=== PATIENT | female | born 1990 | race Caucasian/White ===

== ENCOUNTER 2017-02-23 03:08 | Emergency (ER) | payer MEDICAID ==
[2017-02-23 03:14] VITALS: TEMP 97.2
[2017-02-23] MEDS ORDERED: SODIUM CHLORIDE 0.9% 1,000 ML IV STA (03:58)
[2017-02-23] MEDS ORDERED: MORPHINE SULFATE 4 MG/ML SYRINGE IV STA (03:58)
[2017-02-23] MEDS ORDERED: SODIUM CHLORIDE 0.9% 500 ML IV STA (03:58)
--- NOTE | 2017-02-23 04:11 | ED ---
General Adult HPI - General Chief complaint: Chest Pain Stated complaint: BACK AND ABD PAIN Time Seen by Provider: 02/23/17 03:46 Source: patient, RN notes reviewed, old records reviewed Mode of arrival: ambulatory Limitations: no limitations - History of Present Illness Initial comments: This is a 18-year-old female here for evaluation. The patient comes in for evaluation of complaints of pain. Multiple complaints of different areas of pain. Patient states she has no history of sore symptoms. She does take control, patient states she awoke tonight with pain in her abdomen bilateral flanks and chest with no shortness of breath no nausea vomiting no diarrhea no fevers. No sick contacts or travel history. No recent hospitalizations. No prior history of similar symptoms. No modifying factors for pain. To take Aleve which had mild help but that has ended - Related Data Allergies Allergy/AdvReac Type Severity Reaction Status Date / Time No Known Allergies Allergy Verified 02/23/17 03:14 Review of Systems ROS Statement: Those systems with pertinent positive or pertinent negative responses have been documented in the HPI. ROS Other: All systems not noted in ROS Statement are negative. Past Medical History Past Medical History: No Reported History History of Any Multi-Drug Resistant Organisms: None Reported Past Surgical History: No Surgical Hx Reported Past Psychological History: No Psychological Hx Reported Smoking Status: Never smoker Past Alcohol Use History: Occasional Past Drug Use History: None Reported General Exam Limitations: no limitations General appearance: alert, in no apparent distress Head exam: Present: atraumatic, normocephalic, normal inspection Eye exam: Present: normal appearance, PERRL, EOMI. Absent: scleral icterus, conjunctival injection, periorbital swelling ENT exam: Present: normal exam, mucous membranes moist Neck exam: Present: normal inspection. Absent: tenderness, meningismus, lymphadenopathy Respiratory exam: Present: normal lung sounds bilaterally. Absent: respiratory distress, wheezes, rales, rhonchi, stridor Cardiovascular Exam: Present: normal rhythm, tachycardia, normal heart sounds. Absent: systolic murmur, diastolic murmur, rubs, gallop, clicks GI/Abdominal exam: Present: soft, normal bowel sounds. Absent: distended, tenderness, guarding, rebound, rigid Extremities exam: Present: normal inspection, full ROM, normal capillary refill. Absent: tenderness, pedal edema, joint swelling, calf tenderness Back exam: Present: normal inspection Neurological exam: Present: alert, oriented X3, CN II-XII intact Psychiatric exam: Present: normal affect, normal mood Skin exam: Present: warm, dry, intact, normal color. 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 Patient will be discharged, patient is consulted. 15 minutes regarding new onset blood pressure and concern for prediabetes. - Lab Data Result diagrams: 02/23/17 04:08 02/23/17 04:08 Lab Results 02/23/17 02/23/17 02/23/17 Range/Units 04:08 04:08 04:08 WBC 9.4 (3.8-10.6) k/uL RBC 5.24 (3.80-5.40) m/uL Hgb 14.5 (11.4-16.0) gm/dL Hct 42.8 (34.0-46.0) % MCV 81.7 (80.0-100.0) fL MCH 27.6 (25.0-35.0) pg MCHC 33.8 (31.0-37.0) g/dL RDW 13.1 (11.5-15.5) % Plt Count 228 (150-450) k/uL Neutrophils % 76 % Lymphocytes % 17 % Monocytes % 4 % Eosinophils % 1 % Basophils % 0 % Neutrophils # 7.2 (1.3-7.7) k/uL Lymphocytes # 1.6 (1.0-4.8) k/uL Monocytes # 0.4 (0-1.0) k/uL Eosinophils # 0.1 (0-0.7) k/uL Basophils # 0.0 (0-0.2) k/uL PT (9.0-12.0) sec INR (<1.1) APTT (22.0-30.0) sec D-Dimer (<0.60) mg/L FEU Sodium 142 (137-145) mmol/L Potassium 3.8 (3.5-5.1) mmol/L Chloride 103 (98-107) mmol/L Carbon Dioxide 27 (22-30) mmol/L Anion Gap 12 mmol/L BUN 13 (7-17) mg/dL Creatinine 0.72 (0.52-1.04) mg/dL Est GFR (MDRD) Af Amer >60 (>60 ml/min/1.73 sqM) Est GFR (MDRD) Non-Af >60 (>60 ml/min/1.73 sqM) Glucose 119 H (74-99) mg/dL Calcium 9.3 (8.4-10.2) mg/dL Magnesium 1.7 (1.6-2.3) mg/dL Total Bilirubin 1.0 (0.2-1.3) mg/dL AST 81 H (14-36) U/L ALT 64 H (9-52) U/L Alkaline Phosphatase 50 (38-126) U/L Total Creatine Kinase 234 H (30-135) U/L CK-MB (CK-2) 2.7 H* (0.0-2.4) ng/mL CK-MB (CK-2) Rel Index 1.2 Troponin I <0.012 (0.000-0.034) ng/mL NT-Pro-B Natriuret Pep pg/mL Total Protein 7.1 (6.3-8.2) g/dL Albumin 4.1 (3.5-5.0) g/dL Lipase 138 (23-300) U/L 02/23/17 02/23/17 Range/Units 04:08 04:08 WBC (3.8-10.6) k/uL RBC (3.80-5.40) m/uL Hgb (11.4-16.0) gm/dL Hct (34.0-46.0) % MCV (80.0-100.0) fL MCH (25.0-35.0) pg MCHC (31.0-37.0) g/dL RDW (11.5-15.5) % Plt Count (150-450) k/uL Neutrophils % % Lymphocytes % % Monocytes % % Eosinophils % % Basophils % % Neutrophils # (1.3-7.7) k/uL Lymphocytes # (1.0-4.8) k/uL Monocytes # (0-1.0) k/uL Eosinophils # (0-0.7) k/uL Basophils # (0-0.2) k/uL PT 9.9 (9.0-12.0) sec INR 1.0 (<1.1) APTT 23.2 (22.0-30.0) sec D-Dimer 0.35 (<0.60) mg/L FEU Sodium (137-145) mmol/L Potassium (3.5-5.1) mmol/L Chloride (98-107) mmol/L Carbon Dioxide (22-30) mmol/L Anion Gap mmol/L BUN (7-17) mg/dL Creatinine (0.52-1.04) mg/dL Est GFR (MDRD) Af Amer (>60 ml/min/1.73 sqM) Est GFR (MDRD) Non-Af (>60 ml/min/1.73 sqM) Glucose (74-99) mg/dL Calcium (8.4-10.2) mg/dL Magnesium (1.6-2.3) mg/dL Total Bilirubin (0.2-1.3) mg/dL AST (14-36) U/L ALT (9-52) U/L Alkaline Phosphatase (38-126) U/L Total Creatine Kinase (30-135) U/L CK-MB (CK-2) (0.0-2.4) ng/mL CK-MB (CK-2) Rel Index Troponin I (0.000-0.034) ng/mL NT-Pro-B Natriuret Pep 84 pg/mL Total Protein (6.3-8.2) g/dL Albumin (3.5-5.0) g/dL Lipase (23-300) U/L - Radiology Data Radiology results: report reviewed (Chest x-ray shows peribronchial thickening) , image reviewed Disposition Clinical Impression: Chest pain, Acute bronchitis Disposition: HOME SELF-CARE Condition: Good Instructions: Chest Pain (ED), Acute Bronchitis (ED) Referrals: None,Stated [Primary Care Provider] - 1-2 days
[2017-02-23 05:08] LABS: Basophils % (A) 0 %; CH 27.3; CHCM 33.5; Eosinophils # (A) 0.1 k/uL (0-0.7); Eosinophils % (A) 1 %; HCT 42.8 % (34.0-46.0); HDW 2.65; HGB 14.5 gm/dL (11.4-16.0); Luc # (Auto) 0.15; Luc % (Auto) 2; Lymphocytes # (A) 1.6 k/uL (1.0-4.8); Lymphocytes % (A) 17 %; MCH 27.6 pg (25.0-35.0); MCHC 33.8 g/dL (31.0-37.0); MCV 81.7 fL (80.0-100.0); Mean Platelet Volume 7.4; Monocytes # (A) 0.4 k/uL (0-1.0); Monocytes % (A) 4 %; Neutrophils # (A) 7.2 k/uL (1.3-7.7); Neutrophils % (A) 76 %; RBC 5.24 m/uL (3.80-5.40); RDW 13.1 % (11.5-15.5); WBC 9.4 k/uL (3.8-10.6)
--- NOTE | 2017-02-23 05:13 | XR ---
EXAM: XR Chest, 2 Views. CLINICAL HISTORY: Reason: Chest Pain TECHNIQUE: Frontal and lateral views of the chest. COMPARISON: No relevant prior studies available. FINDINGS: Lungs: Mild peribronchial wall thickening. No consolidation. Pleural space: No pleural effusion. No pneumothorax. Heart: Unremarkable. No cardiomegaly. Mediastinum: Unremarkable. Bones/joints: Unremarkable. IMPRESSION: 1. Mild peribronchial wall thickening. 2. No consolidation or pleural effusion.
[2017-02-23 05:19] LABS: ALT 64 U/L (9-52); AST 81 U/L (14-36); Alkaline Phosphatase 50 U/L (38-126); Anion Gap 12 mmol/L; Blood Urea Nitrogen 13 mg/dL (7-17); Calcium 9.3 mg/dL (8.4-10.2); Carbon Dioxide 27 mmol/L (22-30); Chloride 103 mmol/L (98-107); Glucose 119 mg/dL (74-99); Magnesium 1.7 mg/dL (1.6-2.3); Non-African American GFR(MDRD) >60 (>60 ml/min/1.73 sqM); Potassium 3.8 mmol/L (3.5-5.1); Sodium 142 mmol/L (137-145); Total Protein 7.1 g/dL (6.3-8.2)
[2017-02-23 05:21] LABS: Partial Thromboplastin Time 23.2 sec (22.0-30.0); Prothrombin Time 9.9 sec (9.0-12.0)
[2017-02-23 05:31] LABS: Creatine Kinase 234 U/L (30-135)
[2017-02-23 05:45] LABS: Troponin I <0.012 ng/mL (0.000-0.034)
[2017-02-23 05:53] LABS: Creatine Kinase MB 2.7 ng/mL (0.0-2.4)
[2017-02-23 06:26] VITALS: BP 148/90; PULSE 80; RESP 18
[2017-02-23] MEDS ORDERED: DEXAMETHASONE SOD PHOSPHATE 10 MG/ML 1 ML VIAL IV STA (06:47)
== END 2017-02-23 07:27 | disposition home or self-care (01) ==
LOC: EC 03:08
DX: J20.9 Acute bronchitis, unspecified (principal); R03.0 Elevated blood-pressure reading, without diagnosis of hypertension
CPT/HCPCS: 36415; 93005; 85379; 83880; 80053; 82550; 82553; 83690; 83735; 84484; 85025; 85610; 85730; 71020; 99285; 96374; 96375; 96361 ×2; J2270; J1100

== ENCOUNTER 2017-07-29 11:47 | Emergency (ER) | payer MEDICAID ==
[2017-07-29 11:53] VITALS: RESP 18
[2017-07-29] MEDS ORDERED: SODIUM CHLORIDE 0.9% 1,000 ML IV STA (12:30)
[2017-07-29 12:43] LABS: Basophils % (A) 0 %; CH 28.3; CHCM 34.1; Eosinophils # (A) 0.1 k/uL (0-0.7); Eosinophils % (A) 2 %; HDW 2.69; HGB 14.6 gm/dL (11.4-16.0); Luc # (Auto) 0.14; Luc % (Auto) 2; Lymphocytes # (A) 1.7 k/uL (1.0-4.8); Lymphocytes % (A) 24 %; MCHC 34.9 g/dL (31.0-37.0); MCV 83.1 fL (80.0-100.0); Mean Platelet Volume 7.7; Monocytes # (A) 0.4 k/uL (0-1.0); Monocytes % (A) 5 %; Neutrophils # (A) 4.8 k/uL (1.3-7.7); Neutrophils % (A) 67 %; RBC 5.05 m/uL (3.80-5.40); RDW 12.9 % (11.5-15.5); WBC 7.2 k/uL (3.8-10.6); WBC (Perox) 7.16
[2017-07-29 12:58] LABS: ALT 43 U/L (9-52); AST 26 U/L (14-36); Alkaline Phosphatase 59 U/L (38-126); Amylase 46 U/L (30-110); Anion Gap 11 mmol/L; Blood Urea Nitrogen 9 mg/dL (7-17); Calcium 9.9 mg/dL (8.4-10.2); Carbon Dioxide 23 mmol/L (22-30); Chloride 107 mmol/L (98-107); Glucose 128 mg/dL (74-99); Non-African American GFR(MDRD) >60 (>60 ml/min/1.73 sqM); Potassium 4.2 mmol/L (3.5-5.1); Sodium 141 mmol/L (137-145); Total Bilirubin 0.3 mg/dL (0.2-1.3)
--- NOTE | 2017-07-29 13:28 | XR ---
EXAMINATION TYPE: XR chest 1V DATE OF EXAM: 07/29/2017 COMPARISON: Chest x-ray February 23, 2017. HISTORY: Lower chest and epigastric pain. TECHNIQUE: Single frontal view of the chest is obtained. FINDINGS: Somewhat low lung volumes are redemonstrated. There is no focal air space opacity, pleural effusion, or pneumothorax seen. The cardiac silhouette size is within normal limits. The osseous s tructures are intact. IMPRESSION: No acute process currently.
--- NOTE | 2017-07-29 13:29 | XR ---
EXAMINATION TYPE: XR KUB DATE OF EXAM: 07/29/2017 1:24 PM CLINICAL HISTORY: Epigastric pain. TECHNIQUE: 2 upright KUB images of the abdomen are obtained. COMPARISON: None. FINDINGS: Scattered gas is seen in non-distended stomach and small bowel loops. Gas and fecal materia l is seen in non-distended colon. There is no visceromegaly, pneumoperitoneum, or abnormal calcificat ion appreciated. The lung bases are clear and the osseous structures are intact. IMPRESSION: Overall nonobstructive bowel gas pattern.
[2017-07-29 14:04] VITALS: BP 131/65; PULSE 66; TEMP 98.1
--- NOTE | 2017-07-29 14:18 | ED ---
Abdominal Pain HPI - General Chief Complaint: Abdominal Pain Stated Complaint: ABDOMINAL BACK AND UNDER RIB PAIN Time Seen by Provider: 07/29/17 12:00 Source: patient Mode of arrival: ambulatory Limitations: no limitations - History of Present Illness Initial Comments: 26-year-old female woke up with the pain in the epigastric area also complaining about pain in the right upper quadrant and the left upper quadrant area. Radiates towards her back that his pain for 2 hours now she denies any alcohol use over the last 24 hours she also denies any history of pancreatitis as well and no chest pain or shortness of breath no pleuritic chest pain and the pain has gotten a lot better she do not want any pain medication at this point he denies any history of ulcers in the upper GI - Related Data Home Medications Medication Instructions Recorded Confirmed Metoprolol/Hydrochlorothiazide 1 tab PO DAILY 07/29/17 07/29/17 [Lopressor Hct 50-25 mg Tab] Naproxen Sodium [Aleve] 220 mg PO BID PRN 07/29/17 07/29/17 Previous Rx's Medication Instructions Recorded Ranitidine HCl [Zantac] 150 mg PO BID #60 tab 07/29/17 Allergies Allergy/AdvReac Type Severity Reaction Status Date / Time No Known Allergies Allergy Verified 07/29/17 12:01 Review of Systems ROS Statement: Those systems with pertinent positive or pertinent negative responses have been documented in the HPI. ROS Other: All systems not noted in ROS Statement are negative. Past Medical History Past Medical History: Hypertension History of Any Multi-Drug Resistant Organisms: None Reported Past Surgical History: No Surgical Hx Reported Past Psychological History: No Psychological Hx Reported Smoking Status: Never smoker Past Alcohol Use History: Occasional Past Drug Use History: None Reported General Exam - General Exam Comments Initial Comments: General: The patient is awake and alert, in no distress, and does not appear acutely ill. Skin: Skin is warm and dry and no rashes or lesions are noted. Eye: Pupils are equal, round and reactive to light, extra-ocular movements are intact; there is normal conjunctiva bilaterally. Ears, nose, mouth and throat: There are moist mucous membranes and no oral lesions. Neck: The neck is supple, there is no tenderness or JVD. Cardiovascular: There is a regular rate and rhythm. No murmur, rub or gallop is appreciated. Respiratory: To auscultation bilateral, no wheezing no rhonchi no distress respiratory stevenson noticed Gastrointestinal: Tender in epigastric area. Back: There is no tenderness to palpation in the midline. There is no obvious deformity. Musculoskeletal: Normal ROM, no tenderness, There is no pedal edema. There is no calf tenderness or swelling. No cords were appreciated. Neurological: CN II-XII intact, Cranial nerves III through XII are intact. There are no obvious motor or sensory deficits. Coordination appears grossly intact. Speech is normal. Psychiatric: Cooperative, appropriate mood & affect, normal judgment. Limitations: no limitations Course Vital Signs 07/29/17 07/29/17 11:51 14:03 Temperature 98.7 F 98.1 F Pulse Rate 84 66 Respiratory 18 18 Rate Blood Pressure 137/97 131/65 O2 Sat by Pulse 98 100 Oximetry Her labs and imaging was reviewed she is urine beta-hCG was affected on the urine test CBC is normal C-reactive protein and chemistries are absolutely normal no L no elevated liver functions I KUB and chest x-rays are unremarkable as well there was no bowel obstruction there were no air-fluid levels noticed, these findings were discussed with the patient at this point I don't think any IS INDICATED SINCE SHE IS NONTENDER OVER THE RIGHT UPPER QUADRANT AREA AND LFTS ARE NORMAL ELEVATED SHE IS CURRENTLY GONE HOME AND ZANTAC 150 MILLIGRAMS TWICE DAILY FOR NEXT 45 DAYS SHE IS ADVISED TO RETURN BACK TO ER IF SHE DEVELOPS HIGH FEVER CHILLS OR SYMPTOMS GET WORSE Medical Decision Making - Lab Data Result diagrams: 07/29/17 12:15 07/29/17 12:15 Lab Results 07/29/17 07/29/17 07/29/17 Range/Units 12:15 12:15 12:15 WBC 7.2 (3.8-10.6) k/uL RBC 5.05 (3.80-5.40) m/uL Hgb 14.6 (11.4-16.0) gm/dL Hct 42.0 (34.0-46.0) % MCV 83.1 (80.0-100.0) fL MCH 29.0 (25.0-35.0) pg MCHC 34.9 (31.0-37.0) g/dL RDW 12.9 (11.5-15.5) % Plt Count 270 (150-450) k/uL Neutrophils % 67 % Lymphocytes % 24 % Monocytes % 5 % Eosinophils % 2 % Basophils % 0 % Neutrophils # 4.8 (1.3-7.7) k/uL Lymphocytes # 1.7 (1.0-4.8) k/uL Monocytes # 0.4 (0-1.0) k/uL Eosinophils # 0.1 (0-0.7) k/uL Basophils # 0.0 (0-0.2) k/uL Sodium 141 (137-145) mmol/L Potassium 4.2 (3.5-5.1) mmol/L Chloride 107 (98-107) mmol/L Carbon Dioxide 23 (22-30) mmol/L Anion Gap 11 mmol/L BUN 9 (7-17) mg/dL Creatinine 0.80 (0.52-1.04) mg/dL Est GFR (MDRD) Af Amer >60 (>60 ml/min/1.73 sqM) Est GFR (MDRD) Non-Af >60 (>60 ml/min/1.73 sqM) Glucose 128 H (74-99) mg/dL Calcium 9.9 (8.4-10.2) mg/dL Total Bilirubin 0.3 (0.2-1.3) mg/dL AST 26 (14-36) U/L ALT 43 (9-52) U/L Alkaline Phosphatase 59 (38-126) U/L C-Reactive Protein <5.0 (<10.0) mg/L Total Protein 7.0 (6.3-8.2) g/dL Albumin 4.4 (3.5-5.0) g/dL Amylase 46 (30-110) U/L Lipase 166 (23-300) U/L Urine HCG, Qual (Not Detectd) 07/29/17 Range/Units 12:50 WBC (3.8-10.6) k/uL RBC (3.80-5.40) m/uL Hgb (11.4-16.0) gm/dL Hct (34.0-46.0) % MCV (80.0-100.0) fL MCH (25.0-35.0) pg MCHC (31.0-37.0) g/dL RDW (11.5-15.5) % Plt Count (150-450) k/uL Neutrophils % % Lymphocytes % % Monocytes % % Eosinophils % % Basophils % % Neutrophils # (1.3-7.7) k/uL Lymphocytes # (1.0-4.8) k/uL Monocytes # (0-1.0) k/uL Eosinophils # (0-0.7) k/uL Basophils # (0-0.2) k/uL Sodium (137-145) mmol/L Potassium (3.5-5.1) mmol/L Chloride (98-107) mmol/L Carbon Dioxide (22-30) mmol/L Anion Gap mmol/L BUN (7-17) mg/dL Creatinine (0.52-1.04) mg/dL Est GFR (MDRD) Af Amer (>60 ml/min/1.73 sqM) Est GFR (MDRD) Non-Af (>60 ml/min/1.73 sqM) Glucose (74-99) mg/dL Calcium (8.4-10.2) mg/dL Total Bilirubin (0.2-1.3) mg/dL AST (14-36) U/L ALT (9-52) U/L Alkaline Phosphatase (38-126) U/L C-Reactive Protein (<10.0) mg/L Total Protein (6.3-8.2) g/dL Albumin (3.5-5.0) g/dL Amylase (30-110) U/L Lipase (23-300) U/L Urine HCG, Qual Detected (Not Detectd) Disposition Clinical Impression: Epigastric pain Disposition: HOME SELF-CARE Condition: Good Prescriptions: Ranitidine HCl [Zantac] 150 mg PO BID #60 tab Referrals: Dandy Cuellar MD [Primary Care Provider] - 1-2 days
== END 2017-07-29 14:45 | disposition home or self-care (01) ==
LOC: EC 11:47
DX: R10.13 Epigastric pain (principal); R10.11 Right upper quadrant pain; R10.12 Left upper quadrant pain; M54.9 Dorsalgia, unspecified; I10 Essential (primary) hypertension; Z79.899 Other long term (current) drug therapy
CPT/HCPCS: 36415; 71010; 74000; 80053; 81025; 82150; 83690; 85025; 86140; 96360; 96361; 99284

== ENCOUNTER 2017-08-08 12:39 | Inpatient (IN) | payer MEDICAID ==
[2017-08-08] MEDS ORDERED: SODIUM CHLORIDE 0.9% 1,000 ML IV STA ×2 (13:14→16:59)
--- NOTE | 2017-08-08 13:23 | ED ---
General Adult HPI - General Source: patient, RN notes reviewed Mode of arrival: ambulatory Limitations: no limitations <Mary Johnson - Last Filed: 08/08/17 17:18> <Edson Tamayo - Last Filed: 08/08/17 17:53> - General Chief complaint: Abdominal Pain Stated complaint: Abd and back pain Time Seen by Provider: 08/08/17 13:12 - History of Present Illness Initial comments: 26-year-old female presents to the emergency department with a chief complaint of abdominal cramping and lower back pain with history of . Patient states that she is not 3 weeks . Patient states she is a . Patient denies any nausea vomiting with this. Patient states that she had the pain about a week ago not since she was informed that she was . Patient is concerned due to the pain so she thought that she should be seen. Her doctor referred her here. Patient has any ultrasounds in this . Patient denies any other complaints at this time. Patient denies any recent fever, chills, shortness of breath, chest pain, nausea vomiting, numbness or tingling, dysuria or hematuria, constipation or diarrhea, headaches or visual changes, or any other current symptoms. (Mary Johnson) - Related Data Home Medications Medication Instructions Recorded Confirmed Metoprolol/Hydrochlorothiazide 1 tab PO DAILY 07/29/17 08/08/17 [Lopressor Hct 50-25 mg Tab] Multivitamins, Thera [Multivitamin 1 tab PO DAILY 08/08/17 08/08/17 (formulary)] Allergies Allergy/AdvReac Type Severity Reaction Status Date / Time No Known Allergies Allergy Verified 08/08/17 13:52 Review of Systems ROS Other: All systems not noted in ROS Statement are negative. <Mary Johnson - Last Filed: 08/08/17 17:18> ROS Other: All systems not noted in ROS Statement are negative. <Edson Tamayo - Last Filed: 08/08/17 17:53> ROS Statement: Those systems with pertinent positive or pertinent negative responses have been documented in the HPI. Past Medical History Past Medical History: Hypertension History of Any Multi-Drug Resistant Organisms: None Reported Past Surgical History: No Surgical Hx Reported Past Psychological History: No Psychological Hx Reported Smoking Status: Never smoker Past Alcohol Use History: None Reported Past Drug Use History: None Reported <Mary Johnson - Last Filed: 08/08/17 17:18> General Exam Limitations: no limitations <Mary Johnson - Last Filed: 08/08/17 17:18> <Edson Tamayo - Last Filed: 08/08/17 17:53> - General Exam Comments Initial Comments: General: The patient is awake and alert, in no distress, and does not appear acutely ill. Eye: Pupils are equal, round and reactive to light, extra-ocular movements are intact; there is normal conjunctiva bilaterally. No signs of icterus. Ears, nose, mouth and throat: There are moist mucous membranes and no oral lesions. Neck: The neck is supple, there is no tenderness. Cardiovascular: There is a regular rate and rhythm. No murmur, rub or gallop is appreciated. Respiratory: Lungs are clear to auscultation, respirations are non-labored, breath sounds are equal. No wheezes, stridor, rales, or rhonchi. Gastrointestinal: Soft, non-distended, non-tender abdomen without masses or organomegaly noted. There is no rebound or guarding present. No CVA tenderness. Bowel sounds are unremarkable. Back: There is no tenderness to palpation in the midline. There is no obvious deformity. No rashes noted. Musculoskeletal: Normal ROM, no tenderness, There is no pedal edema. There is no calf tenderness or swelling. Sensation intact. Pulses equal bilaterally 2+. Neurological: CN II-XII intact, There are no obvious motor or sensory deficits. Coordination appears grossly intact. Speech is normal. Skin: Skin is warm and dry and no rashes or lesions are noted. Psychiatric: Cooperative, appropriate mood & affect, normal judgment. (Mary Johnson) Medical Decision Making - Lab Data Result diagrams: 08/08/17 13:28 08/08/17 13:28 - Radiology Data Radiology results: report reviewed, image reviewed <Mary Johnson - Last Filed: 08/08/17 17:18> - Lab Data Result diagrams: 08/08/17 13:28 08/08/17 13:28 <Edson Tamayo - Last Filed: 08/08/17 17:53> - Medical Decision Making 26-year-old female presents to the emergency department with a chief complaint of abdominal pain in .at this time the patient does appear to have cholelithiasis with elevated bilirubin. This time the case was discussed by Dr. Tamayo to Dr. Angeles and we will be admitting the patient for Dr. Angeles to evaluate. He'll also consult on-call WELFARE VISITOR. This is discussed with the patient who is in agreement with plan all questions have been answered. (Mary Johnson) Medical decision making. I examine the patient she is tender in the right upper quadrant to the epigastric region. Her labs show an elevated bilirubin and liver enzymes. Her ultrasound was done because the patient's beta was 1550. Her LMP was 8-21-17 I discussed the case with Dr. Katherine Angeles, on-call surgeon. Patient admitted to her service. I also discussed the case with on-call WELFARE VISITOR Dr. Samuel. With request for consultation as needed for recurrent . Dr. Tamayo (Edson Tamayo) - Lab Data Lab Results 08/08/17 08/08/17 08/08/17 Range/Units 13:09 13:28 13:28 WBC 10.3 (3.8-10.6) k/uL RBC 5.47 H (3.80-5.40) m/uL Hgb 15.6 (11.4-16.0) gm/dL Hct 46.1 H (34.0-46.0) % MCV 84.3 (80.0-100.0) fL MCH 28.5 (25.0-35.0) pg MCHC 33.8 (31.0-37.0) g/dL RDW 13.1 (11.5-15.5) % Plt Count 292 (150-450) k/uL Neutrophils % 86 % Lymphocytes % 9 % Monocytes % 3 % Eosinophils % 2 % Basophils % 0 % Neutrophils # 8.9 H (1.3-7.7) k/uL Lymphocytes # 0.9 L (1.0-4.8) k/uL Monocytes # 0.3 (0-1.0) k/uL Eosinophils # 0.2 (0-0.7) k/uL Basophils # 0.0 (0-0.2) k/uL Sodium (137-145) mmol/L Potassium (3.5-5.1) mmol/L Chloride (98-107) mmol/L Carbon Dioxide (22-30) mmol/L Anion Gap mmol/L BUN (7-17) mg/dL Creatinine (0.52-1.04) mg/dL Est GFR (MDRD) Af Amer (>60 ml/min/1.73 sqM) Est GFR (MDRD) Non-Af (>60 ml/min/1.73 sqM) Glucose (74-99) mg/dL Calcium (8.4-10.2) mg/dL Total Bilirubin (0.2-1.3) mg/dL AST (14-36) U/L ALT (9-52) U/L Alkaline Phosphatase (38-126) U/L Total Protein (6.3-8.2) g/dL Albumin (3.5-5.0) g/dL Amylase (30-110) U/L Lipase (23-300) U/L HCG, Quant mIU/mL Urine Color Dark Yellow Urine Appearance Cloudy H (Clear) Urine pH 6.0 (5.0-8.0) Ur Specific [place] 1.013 (1.001-1.035) Urine Protein Negative (Negative) Urine Glucose (UA) Negative (Negative) Urine Ketones Negative (Negative) Urine Blood Moderate H (Negative) Urine Nitrite Negative (Negative) Urine Bilirubin 2+ H (Negative) Urine Urobilinogen <2.0 (<2.0) mg/dL Ur Leukocyte Esterase Large H (Negative) Urine RBC 1 (0-5) /hpf Urine WBC 7 H (0-5) /hpf Ur Squamous Epith Cells 14 H (0-4) /hpf Urine Bacteria Rare H (None) /hpf Urine Mucus Rare H (None) /hpf Blood Type B Positive Blood Type Recheck B Pos 08/08/17 08/08/17 Range/Units 13:28 16:30 WBC (3.8-10.6) k/uL RBC (3.80-5.40) m/uL Hgb (11.4-16.0) gm/dL Hct (34.0-46.0) % MCV (80.0-100.0) fL MCH (25.0-35.0) pg MCHC (31.0-37.0) g/dL RDW (11.5-15.5) % Plt Count (150-450) k/uL Neutrophils % % Lymphocytes % % Monocytes % % Eosinophils % % Basophils % % Neutrophils # (1.3-7.7) k/uL Lymphocytes # (1.0-4.8) k/uL Monocytes # (0-1.0) k/uL Eosinophils # (0-0.7) k/uL Basophils # (0-0.2) k/uL Sodium 137 (137-145) mmol/L Potassium 4.2 (3.5-5.1) mmol/L Chloride 102 (98-107) mmol/L Carbon Dioxide 22 (22-30) mmol/L Anion Gap 13 mmol/L BUN 6 L (7-17) mg/dL Creatinine 0.77 (0.52-1.04) mg/dL Est GFR (MDRD) Af Amer >60 (>60 ml/min/1.73 sqM) Est GFR (MDRD) Non-Af >60 (>60 ml/min/1.73 sqM) Glucose 152 H (74-99) mg/dL Calcium 9.5 (8.4-10.2) mg/dL Total Bilirubin 4.0 H (0.2-1.3) mg/dL AST 164 H (14-36) U/L ALT 494 H (9-52) U/L Alkaline Phosphatase 98 (38-126) U/L Total Protein 7.6 (6.3-8.2) g/dL Albumin 4.5 (3.5-5.0) g/dL Amylase 31 (30-110) U/L Lipase 137 (23-300) U/L HCG, Quant 1515.5 mIU/mL Urine Color Urine Appearance (Clear) Urine pH (5.0-8.0) Ur Specific [place] (1.001-1.035) Urine Protein (Negative) Urine Glucose (UA) (Negative) Urine Ketones (Negative) Urine Blood (Negative) Urine Nitrite (Negative) Urine Bilirubin (Negative) Urine Urobilinogen (<2.0) mg/dL Ur Leukocyte Esterase (Negative) Urine RBC (0-5) /hpf Urine WBC (0-5) /hpf Ur Squamous Epith Cells (0-4) /hpf Urine Bacteria (None) /hpf Urine Mucus (None) /hpf Blood Type Blood Type Recheck Disposition Decision Date: 08/08/17 Decision Time: 17:19 <Mary Johnson - Last Filed: 08/08/17 17:18> <Edson Tamayo - Last Filed: 08/08/17 17:53> Clinical Impression: Cholelithiasis, Disposition: ADMITTED IP TO THIS HOSP Condition: Stable
[2017-08-08] MEDS ORDERED: ACETAMINOPHEN TAB 500 MG TAB PO STA (13:27)
[2017-08-08 13:41] LABS: Basophils % (A) 0 %; CH 28.2; CHCM 33.6; Eosinophils # (A) 0.2 k/uL (0-0.7); Eosinophils % (A) 2 %; HCT 46.1 % (34.0-46.0); HDW 2.57; HGB 15.6 gm/dL (11.4-16.0); Luc # (Auto) 0.07; Luc % (Auto) 1; Lymphocytes # (A) 0.9 k/uL (1.0-4.8); Lymphocytes % (A) 9 %; MCH 28.5 pg (25.0-35.0); MCHC 33.8 g/dL (31.0-37.0); MCV 84.3 fL (80.0-100.0); Mean Platelet Volume 7.4; Monocytes # (A) 0.3 k/uL (0-1.0); Monocytes % (A) 3 %; Neutrophils # (A) 8.9 k/uL (1.3-7.7); Neutrophils % (A) 86 %; RBC 5.47 m/uL (3.80-5.40); RDW 13.1 % (11.5-15.5); WBC 10.3 k/uL (3.8-10.6); WBC (Perox) 9.74
[2017-08-08 13:44] LABS: Appearance,Urine Cloudy (Clear); Bacteria,Urine Rare /hpf; Bilirubin,Urine 2+ (Negative); Glucose,Urine (UA) Negative (Negative); Ketones,Urine Negative (Negative); Leukocyte Esterase,Urine Large (Negative); Mucus,Urine Rare /hpf; Nitrite,Urine Negative (Negative); Particle Count 6142; Protein,Urine Negative (Negative); RBC,Urine 1 /hpf (0-5); Specific Gravity,Urine 1.013 (1.001-1.035); Squamous Epithelial Cell,Urine 14 /hpf (0-4); UA Billing (MACRO vs. MICRO) MICRO; Urobilinogen,Urine <2.0 mg/dL (<2.0); WBC,Urine 7 /hpf (0-5)
[2017-08-08 14:00] LABS: AST 164 U/L (14-36); Alkaline Phosphatase 98 U/L (38-126); Anion Gap 13 mmol/L; Blood Urea Nitrogen 6 mg/dL (7-17); Calcium 9.5 mg/dL (8.4-10.2); Carbon Dioxide 22 mmol/L (22-30); Chloride 102 mmol/L (98-107); Glucose 152 mg/dL (74-99); Non-African American GFR(MDRD) >60 (>60 ml/min/1.73 sqM); Potassium 4.2 mmol/L (3.5-5.1); Sodium 137 mmol/L (137-145); Total Protein 7.6 g/dL (6.3-8.2)
--- NOTE | 2017-08-08 14:42 | US ---
EXAMINATION TYPE: US OB <= 14 wk fetus DATE OF EXAM: 08/08/2017 COMPARISON: NONE CLINICAL HISTORY: Pain. Abdomen and back pain x 3 days, spotting x 1 day, 3, para 2 EXAM PERFORMED: Transvaginal (TV) and Transabdominal (TA) endovaginal scanning performed for better evaluation of the uterus and ovaries. EXAM MEASUREMENTS: GESTATIONAL AGE / DATING Physician Established: Not established yet Dates by LMP: (3 weeks/0 days) EDC: 04/24/2018 Dates by First Scan: No previous Dates by Current Scan for: No IUP seen at this time MATERNAL ANATOMY Uterus: 9.2 x 3.3 x 6.5cm Endometrium: 2.4cm with 1.5cm complex area within, possible irregular gestational sac vs. complex flu id/blood within endometrium Right Ovary: 2.1 x 1.1 x 1.3cm Left Ovary: 2.7 x 1.8 x 2.1cm Post CDS / Adnexa: wnl Presence of free fluid: no Presence of corpus luteal cyst: not seen at this time GESTATION / SURVEY IUP: No IUP seen at this time Date of LMP: 07/18/2017 Beta HcG (if available): Not available at time of exam IMPRESSION: No pole was identified. Irregular gestational sac could be present, correlate clinically and fo llow-up as indicated.
[2017-08-08 14:43] LABS: ALT 494 U/L (9-52)
--- NOTE | 2017-08-08 15:29 | US ---
EXAMINATION TYPE: US gallbladder DATE OF EXAM: 08/08/2017 COMPARISON: NONE CLINICAL HISTORY: Pain. RUQ pain, last ate at 10 AM EXAM MEASUREMENTS: Liver Length: 19.8 cm Gallbladder Wall: 0.2 cm CBD: 1.0 cm CHD: 1.0 cm Right Kidney: 12.3 x 5.7 x 5.7 cm Pancreas: wnl Liver: enlarged Gallbladder: multiple mobile stones seen Evidence for sonographic Ordoñez's sign: neg CBD: Dilated CHD: dilated Right Kidney: Dromedary hump seen There is no ascites. IMPRESSION: Cholelithiasis. Dilated bile ducts, consider gastroenterology, surgical consult. Hepatome lisseth.
[2017-08-08 16:53] LABS: Amylase 31 U/L (30-110)
[2017-08-08] MEDS ORDERED: NALOXONE 0.4 MG/ML 1 ML VIAL IV PRN (17:19)
--- NOTE | 2017-08-08 18:56 | P.GSHP ---
History of Present Illness H&P Date: 08/08/17 Chief Complaint: Choledocholithiasis The patient is a 26-year-old female who reports having bilateral upper abdominal pain "bandlike" with radiation to the last 2-3 days. In fact, she had similar symptoms 3 weeks ago where she presented to the emergency room. At that time she found out that she was . She reports having similar episodes even 2-3 months ago and had been dismissed for gas pains. No she comes in with elevated total bilirubin including elevated liver enzymes. Ultrasound of the gallbladder were consistent with multiple gallstones. Since admission however, she reports that the bandlike sensation has improved. She did have D[employer] food 3 days ago which incited her pain. She is 3 weeks by blood work. - Review of Systems Comment: CONSTITUTIONAL: Denies any fever or chills. Denies recent weight loss or weight gain. HEENT: Denies any trouble with vision, hearing or nosebleeds. No difficulty swallowing. LYMPHATIC: The patient denies any lumps and bumps around the neck. ENDOCRINE: Denies any thyroid disorders. Denies any blood sugar glucose intolerance. RESPIRATORY: Denies pneumonia. Denies any troubles with breathing or dyspnea on exertion. CARDIOVASCULAR: Denies any chest pain, palpitations, or recent heart attacks. Has hypertension. GASTROINTESTINAL: Denies bright red blood per rectum. New diagnosis of gallstones. GENITOURINARY: Denies any blood in urine or increased urinary frequency. MUSCULOSKELETAL: Denies any back pain, stiffness, joint arthritis. NEUROLOGIC: Denies any numbness or tingling along the distal extremities. No seizure disorders or headaches. PSYCHIATRIC: Denies depression or suidical ideation. HEMATOLOGIC: Denies any abnormal bleeding or bruising. BREASTS: Denies any breast lumps, pain or nipple discharge. Past Medical History Past Medical History: Hypertension History of Any Multi-Drug Resistant Organisms: None Reported Past Surgical History: No Surgical Hx Reported Past Psychological History: No Psychological Hx Reported Smoking Status: Never smoker Past Alcohol Use History: None Reported Past Drug Use History: None Reported Medications and Allergies Home Medications Medication Instructions Recorded Confirmed Type Metoprolol/Hydrochlorothiazide 1 tab PO DAILY 07/29/17 08/08/17 History [Lopressor Hct 50-25 mg Tab] Multivitamins, Thera [Multivitamin 1 tab PO DAILY 08/08/17 08/08/17 History (formulary)] Allergies Allergy/AdvReac Type Severity Reaction Status Date / Time No Known Allergies Allergy Verified 08/08/17 13:52 Surgical - Exam Vital Signs Temp Pulse Resp BP Pulse Ox 97.4 F L 70 16 122/66 100 08/08/17 12:55 08/08/17 12:55 08/08/17 12:55 08/08/17 12:55 08/08/17 12:55 GENERAL: Well developed and in no acute distress. Pleasant. HEENT: No sclera icterus on exam. Extraocular movements grossly intact. Moist buccal mucosa. Head is atraumatic, normocephalic. Hears conversational speech. No nasal drainage. NECK: Supple without lymphadenopathy. No JV distention. CHEST: Non-labored respirations and equal bilateral excursions. CARDIOVASCULAR: Regular rate and rhythm. Palpable 2+ radial pulses. ABDOMEN: Soft. No peritonitis. Nontender along the epigastrium and right upper quadrant to deep palpation. MUSCULOSKELETAL: No clubbing, cyanosis or edema. NEUROLOGIC: No focal or lateralizing signs. PSYCH: Appropriate affect. Alert and oriented to person, place and time. SKIN: Good skin turgor. Will perfused. Results - Labs 08/08/17 13:28 08/08/17 13:28 Abnormal Lab Results - Last 24 Hours (Table) 08/08/17 08/08/17 08/08/17 Range/Units 13:09 13:28 13:28 RBC 5.47 H (3.80-5.40) m/uL Hct 46.1 H (34.0-46.0) % Neutrophils # 8.9 H (1.3-7.7) k/uL Lymphocytes # 0.9 L (1.0-4.8) k/uL BUN 6 L (7-17) mg/dL Glucose 152 H (74-99) mg/dL Total Bilirubin 4.0 H (0.2-1.3) mg/dL AST 164 H (14-36) U/L ALT 494 H (9-52) U/L Urine Appearance Cloudy H (Clear) Urine Blood Moderate H (Negative) Urine Bilirubin 2+ H (Negative) Ur Leukocyte Esterase Large H (Negative) Urine WBC 7 H (0-5) /hpf Ur Squamous Epith Cells 14 H (0-4) /hpf Urine Bacteria Rare H (None) /hpf Urine Mucus Rare H (None) /hpf Diabetes panel 08/08/17 Range/Units 13:28 Sodium 137 (137-145) mmol/L Potassium 4.2 (3.5-5.1) mmol/L Chloride 102 (98-107) mmol/L Carbon Dioxide 22 (22-30) mmol/L BUN 6 L (7-17) mg/dL Creatinine 0.77 (0.52-1.04) mg/dL Glucose 152 H (74-99) mg/dL Calcium 9.5 (8.4-10.2) mg/dL AST 164 H (14-36) U/L ALT 494 H (9-52) U/L Alkaline Phosphatase 98 (38-126) U/L Total Protein 7.6 (6.3-8.2) g/dL Albumin 4.5 (3.5-5.0) g/dL Calcium panel 08/08/17 Range/Units 13:28 Calcium 9.5 (8.4-10.2) mg/dL Albumin 4.5 (3.5-5.0) g/dL Pituitary panel 08/08/17 Range/Units 13:28 Sodium 137 (137-145) mmol/L Potassium 4.2 (3.5-5.1) mmol/L Chloride 102 (98-107) mmol/L Carbon Dioxide 22 (22-30) mmol/L BUN 6 L (7-17) mg/dL Creatinine 0.77 (0.52-1.04) mg/dL Glucose 152 H (74-99) mg/dL Calcium 9.5 (8.4-10.2) mg/dL Adrenal panel 08/08/17 Range/Units 13:28 Sodium 137 (137-145) mmol/L Potassium 4.2 (3.5-5.1) mmol/L Chloride 102 (98-107) mmol/L Carbon Dioxide 22 (22-30) mmol/L BUN 6 L (7-17) mg/dL Creatinine 0.77 (0.52-1.04) mg/dL Glucose 152 H (74-99) mg/dL Calcium 9.5 (8.4-10.2) mg/dL Total Bilirubin 4.0 H (0.2-1.3) mg/dL AST 164 H (14-36) U/L ALT 494 H (9-52) U/L Alkaline Phosphatase 98 (38-126) U/L Total Protein 7.6 (6.3-8.2) g/dL Albumin 4.5 (3.5-5.0) g/dL - Imaging US - abdomen: report reviewed, image reviewed US - pelvic: report reviewed (Personally reviewed with gallstones however no moderate thickening of the gallbladder wall. ultrasound without evidence of fetus.), image reviewed Assessment and Plan (1) Bilateral upper abdominal discomfort Status: Acute (2) Hyperbilirubinemia Status: Acute (3) Elevated alanine aminotransferase (ALT) level Status: Acute (4) Elevated SGOT (AST) Status: Acute (5) Hypertension Status: Acute (6) 3 weeks gestation of Status: Acute (7) Cholelithiasis Status: Acute (8) Status: Acute Plan: 1. At the time of my evaluation, her bilateral upper abdominal pain is moderately improved. I did review with her goal of avoiding surgery as she is less than 8 weeks . 2. 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 3. I have gone over strict low-fat diet throughout her as to avoid another attack. 4. We'll repeat blood work. Hopefully she will have had passed her stone. 5. Goal of conservative management in the interim. 6. Machine Design Checker consult regarding low-fat diet.
[2017-08-08 20:12] VITALS: BMI 39.4
[2017-08-08] MEDS: SODIUM CHLORIDE 0.9% 1,000 ML IV SCH (20:25)
[2017-08-08] MEDS: diphenhydrAMINE 25 MG CAP PO PRN (21:18)
[2017-08-08] MEDS: ACETAMINOPHEN TAB 325 MG TAB PO PRN (21:19)
[2017-08-09] MEDS: ACETAMINOPHEN TAB 325 MG TAB PO PRN ×4 (04:11→23:27)
[2017-08-09] MEDS: diphenhydrAMINE 25 MG CAP PO PRN ×4 (04:12→22:45)
[2017-08-09] MEDS: SODIUM CHLORIDE 0.9% 1,000 ML IV SCH ×2 (05:58→16:24)
[2017-08-09 06:42] LABS: Basophils % (A) 1 %; CH 29.1; CHCM 34.4; Eosinophils # (A) 0.2 k/uL (0-0.7); Eosinophils % (A) 2 %; HCT 39.7 % (34.0-46.0); HDW 2.54; HGB 13.4 gm/dL (11.4-16.0); Luc # (Auto) 0.12; Luc % (Auto) 2; Lymphocytes % (A) 15 %; MCH 28.6 pg (25.0-35.0); MCHC 33.6 g/dL (31.0-37.0); MCV 84.9 fL (80.0-100.0); Mean Platelet Volume 7.8; Monocytes # (A) 0.3 k/uL (0-1.0); Monocytes % (A) 5 %; Neutrophils # (A) 4.9 k/uL (1.3-7.7); Neutrophils % (A) 75 %; RBC 4.68 m/uL (3.80-5.40); RDW 14.2 % (11.5-15.5); WBC 6.6 k/uL (3.8-10.6); WBC (Perox) 7.33
[2017-08-09 06:55] LABS: ALT 369 U/L (9-52); AST 118 U/L (14-36); Alkaline Phosphatase 91 U/L (38-126); Anion Gap 11 mmol/L; Bilirubin, Delta 1.7 mg/dL (0.0-0.2); Blood Urea Nitrogen 5 mg/dL (7-17); Calcium 8.7 mg/dL (8.4-10.2); Carbon Dioxide 23 mmol/L (22-30); Chloride 106 mmol/L (98-107); Glucose 108 mg/dL (74-99); Non-African American GFR(MDRD) >60 (>60 ml/min/1.73 sqM); Potassium 3.5 mmol/L (3.5-5.1); Sodium 140 mmol/L (137-145); Total Bilirubin 4.6 mg/dL (0.2-1.3); Total Protein 6.4 g/dL (6.3-8.2)
--- NOTE | 2017-08-09 08:59 | P.OBCN ---
History of Present Illness Consult date: 08/09/17 Requesting physician: Katherine Gomez Reason for consult: early problem Chief complaint: Cholelithiasis History of present illness: The patient is a 26-year-old 3 para 2001 who was admitted to the ER with acute upper abdominal pain. As noted in Dr. Gomez's dictation, the pain has been episodic over the last several weeks to month. The patient's last menstrual period was July 18 and she has been attempting . She was found in the emergency room to have a positive test and a beta hCG in the range of 1500. She denies any early problems though she does report she has had some vaginal spotting which she notices only 1 going to the bathroom. She denies any cramping or bleeding. Her upper abdominal pain has waxed and waned since admission. Ultrasound is as noted in the chart with findings of gallstones and questionable thickening of the wall of the gallbladder. At current time, the patient is not requiring significant pain medication nor any antibiotics and is being observed for the need for surgery. Obstetrical history: 3 para [id number] term vaginal deliveries. She is currently slightly more than 3 weeks based upon her last menstrual period and this is consistent with her beta hCG level. Gynecologic history: Unremarkable with no history of any infections to include STDs. Review of Systems Review of systems is confined to history of present illness. Past Medical History Past Medical History: Hypertension History of Any Multi-Drug Resistant Organisms: None Reported Past Surgical History: No Surgical Hx Reported Past Anesthesia/Blood Transfusion Reactions: No Reported Reaction Past Psychological History: No Psychological Hx Reported Smoking Status: Never smoker Past Alcohol Use History: None Reported Past Drug Use History: None Reported Additional Drug Use History / Comment(s): rare occasions patient has a wine cooler - Past Family History Mother Family Medical History: No Reported History Father Family Medical History: Diabetes Mellitus Medications and Allergies Home Medications Medication Instructions Recorded Confirmed Type Metoprolol/Hydrochlorothiazide 1 tab PO DAILY 07/29/17 08/08/17 History [Lopressor Hct 50-25 mg Tab] Multivitamins, Thera [Multivitamin 1 tab PO DAILY 08/08/17 08/08/17 History (formulary)] Allergies Allergy/AdvReac Type Severity Reaction Status Date / Time No Known Allergies Allergy Verified 08/08/17 13:52 Exam - Vital Signs Vital signs: Vital Signs Temp Pulse Pulse Pulse Pulse Resp BP 08/09/17 08:16 97.9 F 80 18 08/09/17 04:00 98.7 F 76 16 08/09/17 00:00 98.2 F 70 16 08/08/17 20:00 70 16 08/08/17 19:45 97.8 F 76 18 08/08/17 19:40 97.8 F 76 18 08/08/17 17:38 98.4 F 80 20 113/56 08/08/17 15:48 65 20 125/79 08/08/17 12:55 97.4 F L 70 16 122/66 BP Pulse Ox 08/09/17 08:16 119/66 94 L 08/09/17 04:00 129/68 96 08/09/17 00:00 113/74 97 08/08/17 20:00 08/08/17 19:45 106/63 98 08/08/17 19:40 106/63 98 08/08/17 17:38 100 08/08/17 15:48 99 08/08/17 12:55 100 Intake and Output 08/08/17 08/09/17 08/09/17 22:59 06:59 14:59 Other: Voiding Method Toilet # Voids 1 2 Weight 104.326 kg In general, this is a well-developed, well-nourished white female in no acute distress. Her heart has a regular rhythm and rate without murmur. Her lungs are clear to auscultation bilaterally in all larose. Her abdomen is nondistended, has normal active bowel sounds, soft, nontender, without any palpable masses, hepatosplenomegaly, or hernias. Her extremities without any cyanosis, clubbing, or edema and are nontender to palpation bilaterally. Pelvic examination is deferred as it is not indicated at this time. Results Result Diagrams: 08/09/17 06:23 08/09/17 06:23 Abnormal Lab Results - Last 24 Hours (Table) 08/08/17 08/08/17 08/08/17 Range/Units 13:09 13:28 13:28 RBC 5.47 H (3.80-5.40) m/uL Hct 46.1 H (34.0-46.0) % Neutrophils # 8.9 H (1.3-7.7) k/uL Lymphocytes # 0.9 L (1.0-4.8) k/uL BUN 6 L (7-17) mg/dL Glucose 152 H (74-99) mg/dL Total Bilirubin 4.0 H (0.2-1.3) mg/dL Conjugated Bilirubin (0.0-0.3) mg/dL Delta Bilirubin (0.0-0.2) mg/dL AST 164 H (14-36) U/L ALT 494 H (9-52) U/L Urine Appearance Cloudy H (Clear) Urine Blood Moderate H (Negative) Urine Bilirubin 2+ H (Negative) Ur Leukocyte Esterase Large H (Negative) Urine WBC 7 H (0-5) /hpf Ur Squamous Epith Cells 14 H (0-4) /hpf Urine Bacteria Rare H (None) /hpf Urine Mucus Rare H (None) /hpf 08/09/17 Range/Units 06:23 RBC (3.80-5.40) m/uL Hct (34.0-46.0) % Neutrophils # (1.3-7.7) k/uL Lymphocytes # (1.0-4.8) k/uL BUN 5 L (7-17) mg/dL Glucose 108 H (74-99) mg/dL Total Bilirubin 4.6 H (0.2-1.3) mg/dL Conjugated Bilirubin 1.9 H (0.0-0.3) mg/dL Delta Bilirubin 1.7 H (0.0-0.2) mg/dL AST 118 H (14-36) U/L ALT 369 H (9-52) U/L Urine Appearance (Clear) Urine Blood (Negative) Urine Bilirubin (Negative) Ur Leukocyte Esterase (Negative) Urine WBC (0-5) /hpf Ur Squamous Epith Cells (0-4) /hpf Urine Bacteria (None) /hpf Urine Mucus (None) /hpf Microbiology - Last 24 Hours (Table) 08/08/17 13:09 Urine Culture - Preliminary Urine,Voided Assessment and Plan (1) Cholelithiasis Status: Acute (2) Status: Acute Plan: The for this patient is desired. Nonetheless, any acute upper abdominal concerned should should not be delayed from a surgical perspective based upon Villavicencio . Should it be necessary for the patient's health and safety, surgery should certainly be entertained and carried out. In order to confirm a normal viable intrauterine as best as possible, beta hCG could be repeated tomorrow. This could be done if the patient remains inpatient but otherwise should be done as an outpatient. She otherwise should follow up with the phd internship of her choice for early care. I would certainly recommend avoiding any fattier spicy foods as can exacerbate the symptoms of cholelithiasis. In the meantime no obstetrical intervention is warranted and I will sign off the case unless you need me otherwise. Thank you for the consult on this pleasant patient.
--- NOTE | 2017-08-09 14:06 | P.PN ---
<Lizabeth Rahmanrachelle Arambula - Last Filed: 08/09/17 13:53> Subjective 26-year-old female being seen this morning patient continues to report having bilateral upper abdominal discomfort. 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 currently slightly more than 3 weeks based upon her last menstrual period as well as her beta hcg level total bilirubin 4.6 AST down to 118 ALT 369 patient's slightly jaundiced in appearance Objective - Vital Signs Vital signs: Vital Signs Temp 97.8 F 08/09/17 12:54 Pulse 77 08/09/17 12:54 Resp 18 08/09/17 12:54 BP 114/68 08/09/17 12:54 Pulse Ox 97 08/09/17 12:54 Intake & Output 08/08/17 08/09/17 08/09/17 18:59 06:59 18:59 Weight 104.326 kg 104.326 kg 104.326 kg Other: Voiding Method Toilet # Voids 2 - Exam Physical exam 26-year-old female sitting up in bed pleasant cooperative stating continues to have bilateral upper abdominal pain but not as intense it has improved Lungs essentially clear adequate air movement Heart S1-S2 audible regular no murmur denying chest pain Abdomen soft not distended bowel tones present no reports of nausea or vomiting no palpable organomegaly states urinating with no difficulty. Extremities no edema noted - Labs CBC & Chem 7: 08/09/17 06:23 08/09/17 06:23 Labs: Abnormal Lab Results - Last 24 Hours (Table) 08/08/17 08/09/17 Range/Units 13:28 06:23 BUN 6 L 5 L (7-17) mg/dL Glucose 152 H 108 H (74-99) mg/dL Total Bilirubin 4.0 H 4.6 H (0.2-1.3) mg/dL Conjugated Bilirubin 1.9 H (0.0-0.3) mg/dL Delta Bilirubin 1.7 H (0.0-0.2) mg/dL AST 164 H 118 H (14-36) U/L ALT 494 H 369 H (9-52) U/L Microbiology - Last 24 Hours (Table) 08/08/17 13:09 Urine Culture - Preliminary Urine,Voided Assessment and Plan Plan: Impression Assessment and Plan (1) Bilateral upper abdominal discomfort suspect to acute cholelithiasis Status: Acute (2) Hyperbilirubinemia Status: Acute (3) Elevated alanine aminotransferase (ALT) level Status: Acute (4) Elevated SGOT (AST) Status: Acute (5) Hypertension Status: Acute (6) 3 weeks gestation of Status: Acute (7) Cholelithiasis Status: Acute (8) Status: Acute Plan Consult gastroenterology possible ERCP needed Await PRINTED CIRCUIT BOARD PCB DESIGNER's recommendations Continue low-fat diet Goal conservative management in the interim Dietitian consult regarding a low-fat diet The above impression and plan of care have been discussed and directed by signing physician. Gabriela Rahman nurse practitioner acting as scribe for signing physician. <Katherine Gomez - Last Filed: 08/09/17 22:36> Objective - Vital Signs Vital signs: Vital Signs Temp 98.1 F 08/09/17 20:49 Pulse 86 08/09/17 20:49 Resp 16 08/09/17 20:49 BP 131/83 08/09/17 20:49 Pulse Ox 96 08/09/17 20:49 Intake & Output 08/09/17 08/09/17 08/10/17 06:59 18:59 06:59 Weight 104.326 kg 104.326 kg Other: Voiding Method Toilet # Voids 2 - Labs CBC & Chem 7: 08/09/17 06:23 08/09/17 06:23 Labs: Abnormal Lab Results - Last 24 Hours (Table) 08/09/17 Range/Units 06:23 BUN 5 L (7-17) mg/dL Glucose 108 H (74-99) mg/dL Total Bilirubin 4.6 H (0.2-1.3) mg/dL Conjugated Bilirubin 1.9 H (0.0-0.3) mg/dL Delta Bilirubin 1.7 H (0.0-0.2) mg/dL AST 118 H (14-36) U/L ALT 369 H (9-52) U/L Microbiology - Last 24 Hours (Table) 08/08/17 13:09 Urine Culture - Preliminary Urine,Voided Assessment and Plan (1) Bilateral upper abdominal discomfort Status: Acute (2) Hyperbilirubinemia Status: Acute (3) Elevated alanine aminotransferase (ALT) level Status: Acute (4) Elevated SGOT (AST) Status: Acute (5) Hypertension Status: Acute (6) 3 weeks gestation of Status: Acute (7) Cholelithiasis Status: Acute (8) Status: Acute Plan: OB input appreciated. Will need surgical intervention for symptomatic choledocholithiasis. ERCP requested.
[2017-08-09] MEDS: MULTIVITAMINS, THERA 1 EACH TAB PO SCH (14:17)
--- NOTE | 2017-08-09 20:51 | P.PN ---
Progress Note - Text Patient seen and reevaluated alongside traffic director, Dr. Coats. She reports bandlike discomfort which has improved from this morning however still present. Potential ERCP tomorrow pending persistent elevation of her LFTs including total bilirubin as discussed with GI. May have liquid diet tonight with nothing by mouth in the morning. Laparoscopic cholecystectomy potentially for tomorrow versus morning.
--- NOTE | 2017-08-09 22:14 | P.CONS ---
History of Present Illness - Reason for Consult Consult date: 08/09/17 - History of Present Illness The patient is a 26-year-old female who presented to the emergency room with upper abdominal pains radiating to the back of 2-3 days duration. The patient was found to have cholelithiasis and dilated common bile duct to 1 cm and elevated liver enzymes. While asked to see her for consideration for ERCP. The patient apparently has been having on and off issues over the last year but was not aware that she had gallstones. She is currently around 3 weeks . She was evaluated by the OB service who recommended we proceed with any intervention deemed required for her health. The patient feels better compared to when she presented to the hospital, however, her total bilirubin today is essentially unchanged at around 4.6. The patient denies any fever, chills or bleeding. Review of Systems Constitutional: Denies fever, chills, sweats, weight gain, or loss. HEENT: Negative for migraines, blurred vision or loss, earaches, drainage, tinnitus, oral mucosal lesions, dysphagia, or odynophagia. Cardiac: No chest pains or palpitations. Respiratory: Negative for shortness of breath, hemoptysis, cough, or sputum production. Gastrointestinal: See HPI for pertinent findings. Genitourinary: Negative for hematuria, urgency, frequency, polyuria or dysuria. Musculoskeletal: Negative for muscle aches, swelling, arthritis, and arthralgias. Neurologic: Denied headaches, double vision or other sensory or motor changes. Endocrine: Negative for thyroid problems. Skin: Negative for rash or itching. Psychiatric: Negative history for depression and anxiety Past Medical History Past Medical History: Hypertension History of Any Multi-Drug Resistant Organisms: None Reported Past Surgical History: No Surgical Hx Reported Past Anesthesia/Blood Transfusion Reactions: No Reported Reaction Past Psychological History: No Psychological Hx Reported Smoking Status: Never smoker Past Alcohol Use History: None Reported Past Drug Use History: None Reported Additional Drug Use History / Comment(s): rare occasions patient has a wine cooler - Past Family History Mother Family Medical History: No Reported History Father Family Medical History: Diabetes Mellitus Medications and Allergies Home Medications Medication Instructions Recorded Confirmed Type Metoprolol/Hydrochlorothiazide 1 tab PO DAILY 07/29/17 08/08/17 History [Lopressor Hct 50-25 mg Tab] Multivitamins, Thera [Multivitamin 1 tab PO DAILY 08/08/17 08/08/17 History (formulary)] Allergies Allergy/AdvReac Type Severity Reaction Status Date / Time No Known Allergies Allergy Verified 08/08/17 13:52 Physical Exam Vitals: Vital Signs Temp Pulse Pulse Resp BP Pulse Ox 08/09/17 16:35 97.8 F 75 20 111/71 98 08/09/17 12:54 97.8 F 77 18 114/68 97 08/09/17 08:16 97.9 F 80 18 119/66 94 L 08/09/17 04:00 98.7 F 76 16 129/68 96 08/09/17 00:00 98.2 F 70 16 113/74 97 Intake and Output 08/09/17 08/09/17 08/09/17 06:59 14:59 22:59 Other: # Voids 2 Weight 104.326 kg Patient Weight 08/10/17 06:59 Weight 104.326 kg General appearance: The patient is alert, oriented, in no acute distress. HET: Head is normocephalic and atraumatic. Pupils are equal and reactive. Sclerae icteric. Oropharynx is clear without lesions. Neck: Supple without lymphadenopathy. Trachea midline. Heart: No abnormal sounds murmurs or friction rubs. Lungs: Clear, no wheezes are heard, no dullness to percussion. Abdomen: Soft, bowel sounds present. No peritoneal signs. No palpable organomegaly or masses. Extremities: Normal skin color and turgor. No cyanosis, rash, ulceration or clubbing. No edema. Radial and pedal pulses are 2/4 bilaterally. Neurological: No focal deficits. Strength and sensation are grossly intact. Results CBC & Chem 7: 08/09/17 06:23 08/09/17 06:23 Labs: Abnormal Lab Results - Last 24 Hours (Table) 08/09/17 Range/Units 06:23 BUN 5 L (7-17) mg/dL Glucose 108 H (74-99) mg/dL Total Bilirubin 4.6 H (0.2-1.3) mg/dL Conjugated Bilirubin 1.9 H (0.0-0.3) mg/dL Delta Bilirubin 1.7 H (0.0-0.2) mg/dL AST 118 H (14-36) U/L ALT 369 H (9-52) U/L Microbiology - Last 24 Hours (Table) 08/08/17 13:09 Urine Culture - Preliminary Urine,Voided Assessment and Plan Plan: 26-year-old female with cholelithiasis with abnormal liver enzymes and jaundice who presented with abdominal pain suggestive of choledocholithiasis. If the patient's bilirubin and liver enzymes improve: Concurrent with the improvement of her symptoms, it would be possible that she has passed a common bile duct stone spontaneously. Otherwise, we'll consider ERCP for common bile duct stone extraction despite the her being 3 week . I will discuss with you and follow with interest.
[2017-08-10 06:43] LABS: Basophils # (A) 0.1 k/uL (0-0.2); Basophils % (A) 1 %; CH 28.7; CHCM 33.4; Eosinophils # (A) 0.2 k/uL (0-0.7); Eosinophils % (A) 5 %; HDW 2.54; HGB 13.4 gm/dL (11.4-16.0); Luc # (Auto) 0.09; Luc % (Auto) 2; Lymphocytes # (A) 1.2 k/uL (1.0-4.8); Lymphocytes % (A) 25 %; MCH 28.1 pg (25.0-35.0); MCHC 32.6 g/dL (31.0-37.0); MCV 86.4 fL (80.0-100.0); Mean Platelet Volume 7.8; Monocytes # (A) 0.3 k/uL (0-1.0); Monocytes % (A) 7 %; Neutrophils # (A) 3.1 k/uL (1.3-7.7); Neutrophils % (A) 61 %; RBC 4.75 m/uL (3.80-5.40); RDW 14.3 % (11.5-15.5); WBC (Perox) 4.63
[2017-08-10 06:55] LABS: ALT 313 U/L (9-52); AST 111 U/L (14-36); Alkaline Phosphatase 82 U/L (38-126); Anion Gap 12 mmol/L; Blood Urea Nitrogen 6 mg/dL (7-17); Calcium 8.9 mg/dL (8.4-10.2); Carbon Dioxide 20 mmol/L (22-30); Chloride 109 mmol/L (98-107); Glucose 94 mg/dL (74-99); Non-African American GFR(MDRD) >60 (>60 ml/min/1.73 sqM); Potassium 3.8 mmol/L (3.5-5.1); Sodium 141 mmol/L (137-145); Total Bilirubin 2.6 mg/dL (0.2-1.3); Total Protein 6.4 g/dL (6.3-8.2)
[2017-08-10] MEDS ORDERED: HEPARIN SODIUM,PORCINE 5,000 UNIT/ML 1 ML VIAL SQ ONE (10:36)
[2017-08-10] MEDS ORDERED: ceFAZolin 2 GM in SODIUM CHLORIDE 0.9% 100 ML IVPB ONE (10:36)
[2017-08-10] MEDS ORDERED: ACETAMINOPHEN IV (For NPO) 1,000 MG in EMPTY BAG 1 BAG IVPB ONE ×2 (10:36→12:43)
--- NOTE | 2017-08-10 10:36 | P.PN ---
<Lizabeth Rahmanrachelle Arambula - Last Filed: 08/10/17 10:30> Subjective 26-year-old female being seen on rounds this morning is sitting up in bed. Patient states "experiencing vague abdominal discomfort it's almost gone. Reports no nausea vomiting. The white count is down to 5. ALT 313, AST 111 total bili down to 2.6 was 4.6 the day before H CG unattended down to 1294 patient states that she has taken plain Tylenol which has been effective for pain control Did note the recommendations from GI service at this time since there is an improvement in the liver function studies they will hold on proceeding with an ERCP it's also noted that the patient is 3 weeks . Tentatively the patient is being scheduled for possible laparoscopic cholecystectomy today or tomorrow Patient is aware of the plan of care Objective - Vital Signs Vital signs: Vital Signs Temp 98.0 F 08/10/17 08:35 Pulse 76 08/10/17 08:35 Resp 28 H 08/10/17 08:35 BP 123/72 08/10/17 08:35 Pulse Ox 97 08/10/17 08:35 Intake & Output 08/09/17 08/10/17 08/10/17 18:59 06:59 18:59 Weight 104.326 kg - Exam Physical exam 26-year-old female sitting up in bed pleasant cooperative stating "the abdominal discomfort is almost gone there is a vague feeling but does not feel like it did when I first came into the hospital Lungs essentially clear adequate air movement no cough noted no shortness of breath Heart S1-S2 audible regular no murmur denying chest pain Abdomen soft not distended bowel tones present no reports of nausea or vomiting no palpable organomegaly states urinating with no difficulty. Extremities no edema noted - Labs CBC & Chem 7: 08/10/17 06:23 08/10/17 06:23 Labs: Abnormal Lab Results - Last 24 Hours (Table) 08/10/17 Range/Units 06:23 Chloride 109 H (98-107) mmol/L Carbon Dioxide 20 L (22-30) mmol/L BUN 6 L (7-17) mg/dL Total Bilirubin 2.6 H (0.2-1.3) mg/dL AST 111 H (14-36) U/L ALT 313 H (9-52) U/L Microbiology - Last 24 Hours (Table) 08/08/17 13:09 Urine Culture - Final Urine,Voided Assessment and Plan Plan: Impression Assessment and Plan (1) Bilateral upper abdominal discomfort suspect to acute cholelithiasis Status: Acute (2) Hyperbilirubinemia Status: Acute (3) Elevated alanine aminotransferase (ALT) level Status: Acute (4) Elevated SGOT (AST) Status: Acute (5) Hypertension Status: Acute (6) 3 weeks gestation of Status: Acute (7) Cholelithiasis Status: Acute (8) Status: Acute Plan Per GI no plan for ERCP at this time INSPECTOR WATCH TRAIN's recommendations noted appreciated Continue npo possible laparoscopically cholecystectomy today or tomorrow Goal conservative management in the interim Dietitian consult regarding a low-fat diet The above impression and plan of care have been discussed and directed by signing physician. Gabriela Rahman nurse practitioner acting as scribe for signing physician. <Katherine Gomez N - Last Filed: 08/11/17 18:34> Objective - Vital Signs Vital signs: Vital Signs Temp 97.4 F L 08/11/17 08:44 Pulse 82 08/11/17 08:44 Resp 19 08/11/17 08:44 BP 120/74 08/11/17 08:44 Pulse Ox 94 L 08/11/17 08:44 Intake & Output 08/10/17 08/11/17 08/11/17 18:59 06:59 18:59 Intake Total 800 Output Total 905 2900 Balance -105 -2900 Intake: IV 800 Output: Urine 900 2900 Estimated Blood Loss 5 Other: # Voids 1 1 - Labs CBC & Chem 7: 08/10/17 06:23 08/11/17 06:53 Labs: Abnormal Lab Results - Last 24 Hours (Table) 08/11/17 Range/Units 06:53 BUN 4 L (7-17) mg/dL Total Bilirubin 1.6 H (0.2-1.3) mg/dL AST 124 H (14-36) U/L ALT 305 H (9-52) U/L Assessment and Plan (1) Bilateral upper abdominal discomfort Status: Acute (2) Hyperbilirubinemia Status: Acute (3) Elevated alanine aminotransferase (ALT) level Status: Acute (4) Elevated SGOT (AST) Status: Acute (5) Hypertension Status: Acute (6) 3 weeks gestation of Status: Acute (7) Cholelithiasis Status: Acute (8) Status: Acute
--- NOTE | 2017-08-10 10:39 | P.HPADDEND ---
H&P Addendum H&P Addendum Date: 08/10/17 Patient's beta hCG has been followed since her hospitalization and slowly decreasing. She had been seen by the cooking show host whereby urgent surgical intervention is warranted. ERCP and GI consultation were reviewed where her LFTs and total bilirubin are improving. We will proceed with immediate laparoscopic cholecystectomy with follow-up chemistries and GI following. Risks to her were reviewed in detail.
[2017-08-10] MEDS ORDERED: IV FLUID CONTINUATION 1,000 ML IV ONE (10:52)
[2017-08-10] MEDS ORDERED: NEOSTIGMINE 1 MG/ML 10 ML VIAL ONE (11:26)
[2017-08-10] MEDS ORDERED: SUCCINYLCHOLINE CHLORIDE 100 MG/5 ML SYR IV ONE (11:26)
[2017-08-10] MEDS ORDERED: LIDOCAINE 1% INJ 10MG/ML (20 ML MDV) ONE (11:26)
[2017-08-10] MEDS ORDERED: ROCURONIUM BROMIDE 10 MG/ML 10 ML VIAL IV ONE (11:26)
[2017-08-10] MEDS ORDERED: ePHEDrine SULFATE/0.9% NACL/PF 50 MG/5 ML SYRINGE IV ONE (11:26)
[2017-08-10] MEDS ORDERED: GLYCOPYRROLATE 0.2 MG/ML 2 ML VIAL ONE (11:26)
[2017-08-10] MEDS ORDERED: PROPOFOL 10 MG/ML 20 ML VIAL IV ONE (11:26)
[2017-08-10] MEDS ORDERED: fentaNYL (PF) 50 MCG/ML 2 ML AMP ONE (11:26)
[2017-08-10] MEDS ORDERED: BUPIVACAINE-EPI 0.5%-1:200,000 10 ML VIAL SQ ONE (11:53)
[2017-08-10] MEDS ORDERED: LACTATED RINGERS 1,000 ML IV ONE (12:16)
--- NOTE | 2017-08-10 12:42 | P.OP ---
Date of Procedure: 08/10/17 Description of Procedure: SURGEON: TANJA BOYLE MD SPINDLE SANDER: None. PREOPERATIVE DIAGNOSES: 1. Choledocholithiasis. 2. Hyperbilirubinemia secondary to common bile duct obstruction. 3. Elevated ALT 4. Elevated AST 5. , 3 weeks per serum. 6. Morbid obesity due to excess calories. 7. BMI 39.5 8. Hypertension. POSTOPERATIVE DIAGNOSES: 1. Choledocholithiasis. 2. Hyperbilirubinemia secondary to common bile duct obstruction. 3. Elevated ALT 4. Elevated AST 5. , 3 weeks per serum. 6. Morbid obesity due to excess calories. 7. BMI 39.5 8. Hypertension. 9. Acute on chronic cholecystitis secondary to cystic duct obstruction. OPERATION: Laparoscopic cholecystectomy ANESTHESIA: General with 30 mL 0.25% Marcaine with epinephrine. ESTIMATED BLOOD LOSS: 5 mL. SPECIMENS REMOVED: Gallbladder. COMPLICATIONS: None. INDICATIONS: The patient is a 26-year-old female who presented emergently with hyperbilirubinemia including elevated liver enzymes consistent with choledocholithiasis. She presented 3 weeks per serum beta hCG. Sales Recruiter consultation was obtained. A GI consultation was obtained. The patient was initially treated conservatively however her liver enzymes continued to elevate and she was symptomatic. Given her clinical picture, surgical intervention with a laparoscopic cholecystectomy was described at length including injury to the biliary tree, bleeding, infection, need for further surgery. Informed consent was obtained. DESCRIPTION OF THE PROCEDURE: The patient was brought to the operating room, laid in supine position. After general induction, the abdomen was prepped and draped in a standard sterile fashion. Prior to incision, a timeout protocol was confirmed with surgical team regarding patient's name, procedure to be performed including preoperative medications for which she had received heparin 5000 units subcutaneously as well as bilateral SCDs for DVT prophylaxis. A transverse 5 mm incision was made above the umbilicus and off to the right of the midline. Please note the skin was localized prior to incision. A 0 degree 5-mm laparoscopic trocar entry was performed and entered into the peritoneal cavity. Diagnostic laparoscopy confirmed no injury to bowel, viscera or mesentery. The liver serosa was completely unremarkable. Next, two 5 mm trocars were placed along the right costal margin followed by a 11 mm port at the left upper quadrant. The patient was placed in steep reverse Trendelenburg position with the right side up. The gallbladder fundus was retracted over the dome of the liver. Initial attention was brought to the infundibulum which was gently retracted in the inferior lateral approach. Using a Kittner, the cystic duct including the cystic artery was carefully skeletonized. Using a large clip senior trial attorney 2 clips were placed proximally, and 2 clips were placed distally along the cystic duct and then cut. The cystic duct was consistent with 5-6 mm in size. Stones were milked towards the gallbladder. The common bile duct was not dilated. Again care was taken to avoid any injury to the biliary tree as the common bile duct was visualized during this portion of dissection. Next, the cystic artery was clipped twice proximally, once distally and then cauterized. Electro-Bovie cautery was used to remove the gallbladder from the hepatic fossa without decompression of the gallbladder. Hemostasis was checked and found to be adequate. The gallbladder was removed from the abdominal cavity using an Endo Catch bag and passed off for further pathological analysis. All instruments and pneumoperitoneum were removed from the abdominal cavity. The fascial defect was less than 8 mm for the 11-mm port site. The rest of incisions were reapproximated using 4-0 Monocryl in an interrupted subcuticular fashion. A total of 30 mL of 0.5% Marcaine with epinephrine was infiltrated to all wounds for postop analgesia. Dilute hydrogen peroxide was applied to the skin. Dermabond was applied to the skin. At the end of the procedure, needle, sponge, and instrument count was verified correct by surgical product sales consultant. The patient had tolerated the procedure well and was taken to postanesthesia care unit in stable condition. Intraoperative films were discussed and reviewed with the patient's family who were pleased with the level of care. FINDINGS: 1. Chronic cholecystitis with acute cystic duct obstruction. 2. Unremarkable liver surface. 3. Multiple hemangiomas along the left liver lobe and right lobe.
[2017-08-10] MEDS: HYDROmorphone 1 MG/ML 1 ML SYRINGE IVP ONE ×2 (13:11→13:22)
[2017-08-10] MEDS ORDERED: ONDANSETRON 4 MG/2 ML VIAL IVP ONE (13:12)
[2017-08-10] MEDS ORDERED: METOPROLOL PO SCH (16:00)
[2017-08-10] MEDS ORDERED: HYDROCHLOROTHIAZIDE PO SCH (16:00)
[2017-08-10] MEDS ORDERED: HYDROmorphone 1 MG/ML 1 ML SYRINGE IVP PRN (16:04)
[2017-08-10] MEDS: SODIUM CHLORIDE 0.9% 1,000 ML IV SCH ×2 (16:10)
[2017-08-10] MEDS: METOPROLOL TARTRATE 50 MG TAB PO SCH (16:12)
[2017-08-10] MEDS: HYDROCHLOROTHIAZIDE 25 MG TAB PO SCH (16:12)
--- NOTE | 2017-08-10 17:03 | P.PN ---
Progress Note - Text Patient seen and reevaluated this evening. No jaundice. Her bandlike upper abdominal pain is resolved. No reports of nausea and vomiting. Beta hCG trending downward. Dentofacial Orthopedics Dentist to see the patient in the morning for potential discharge tomorrow.
[2017-08-10] MEDS: MULTIVITAMINS, THERA 1 EACH TAB PO SCH (18:15)
[2017-08-10] MEDS: ceFAZolin 2 GM in SODIUM CHLORIDE 0.9% 100 ML IVPB SCH ×2 (18:36→23:16)
[2017-08-11] MEDS: ACETAMINOPHEN TAB 325 MG TAB PO PRN ×3 (00:24→12:53)
[2017-08-11 07:57] LABS: ALT 305 U/L (9-52); AST 124 U/L (14-36); Alkaline Phosphatase 85 U/L (38-126); Anion Gap 12 mmol/L; Blood Urea Nitrogen 4 mg/dL (7-17); Calcium 9.4 mg/dL (8.4-10.2); Carbon Dioxide 27 mmol/L (22-30); Chloride 100 mmol/L (98-107); Glucose 86 mg/dL (74-99); Non-African American GFR(MDRD) >60 (>60 ml/min/1.73 sqM); Potassium 3.8 mmol/L (3.5-5.1); Sodium 139 mmol/L (137-145); Total Bilirubin 1.6 mg/dL (0.2-1.3); Total Protein 7.2 g/dL (6.3-8.2)
--- NOTE | 2017-08-11 08:42 | P.PN ---
Progress Note - Text I discussed with the patient the findings of of her hormone levels the remaining stable and/or decreasing over the last 4 days. This is consistent with the diagnosis of missed . She denies any ongoing spotting or bleeding at this time but did report that at the time of admission. I discussed with her at some length the natural history of spontaneous miscarriage and that I cannot be 100% sure that that is the diagnosis here but I am relatively sure. She will need to continue to follow-up in the outpatient for serial beta hCG to either confirm normal or follow the hormone level to 0. I have suggested that at this early gestation she does not require or need a D&C if miscarriages the diagnosis. Rather I would allow it to miscarry on its own and follow her hormone level to 0. She understood all that was discussed and will follow up as an outpatient either with myself or with the hat block maker of her choice.
[2017-08-11 08:45] VITALS: BP 120/74; PULSE 82; RESP 19; TEMP 97.4
[2017-08-11] MEDS: SODIUM CHLORIDE 0.9% 1,000 ML IV SCH ×2 (09:19→09:28)
[2017-08-11] MEDS: METOPROLOL TARTRATE 50 MG TAB PO SCH (09:27)
[2017-08-11] MEDS: HYDROCHLOROTHIAZIDE 25 MG TAB PO SCH (09:28)
--- NOTE | 2017-08-11 10:53 | P.PN ---
<Gabriela Rahman - Last Filed: 08/11/17 10:48> Subjective Pleasant 27-year-old female being seen on rounds this morning currently is up ambulating in the hallway. Patient states there is an improvement the abdominal pain is mild with no reports of nausea vomiting. Patient states taking plain Tylenol has been effective for pain control. MOTOR ANALYST recommendations were noted and appreciated. They recommended follow-up in the outpatient for serial beta hCG to the confirm normal or follow the hormone level to 0. Patient stopped findings are consistent with the diagnosis of a missed per MOTOR ANALYST Patient is postop August 11 laparoscopic cholecystectomy. Objective - Vital Signs Vital signs: Vital Signs Temp 97.4 F L 08/11/17 08:44 Pulse 82 08/11/17 08:44 Resp 19 08/11/17 08:44 BP 120/74 08/11/17 08:44 Pulse Ox 94 L 08/11/17 08:44 Intake & Output 08/10/17 08/11/17 08/11/17 18:59 06:59 18:59 Intake Total 800 Output Total 905 2900 Balance -105 -2900 Intake: IV 800 Output: Urine 900 2900 Estimated Blood Loss 5 Other: # Voids 1 1 - Exam Physical exam 27-year-old female up ambulating in the hallway pleasant cooperative oriented 3 denies any vaginal bleeding when questioning lungs essentially clear with adequate air movement Heart S1-S2 audible regular denies chest pain no murmur Abdomen surgical sites no redness benign nontender bowel tones present reports no nausea vomiting tolerating diet no stool Extremities no edema noted - Labs CBC & Chem 7: 08/10/17 06:23 08/11/17 06:53 Labs: Abnormal Lab Results - Last 24 Hours (Table) 08/11/17 Range/Units 06:53 BUN 4 L (7-17) mg/dL Total Bilirubin 1.6 H (0.2-1.3) mg/dL AST 124 H (14-36) U/L ALT 305 H (9-52) U/L Assessment and Plan Plan: Impression Assessment and Plan (1) Bilateral upper abdominal discomfort suspect to acute cholelithiasis Status: Acute (2) Hyperbilirubinemia Status: Acute (3) Elevated alanine aminotransferase (ALT) level Status: Acute (4) Elevated SGOT (AST) Status: Acute (5) Hypertension Status: Acute (6) 3 weeks gestation of with hormone levels stable or decreasing over the last 4 days consistent with diagnosis of missed Status: Acute (7) Cholelithiasis Status: Acute (8) Status: Acute Plan Per GI no plan for ERCP at this time MOTOR ANALYST's recommendations noted appreciated Dietitian consult regarding a low-fat diet The above impression and plan of care have been discussed and directed by signing physician. Gabriela Rahman nurse practitioner acting as scribe for signing physician. <Katherine Gomez N - Last Filed: 08/11/17 18:34> Objective - Vital Signs Vital signs: Vital Signs Temp 97.4 F L 08/11/17 08:44 Pulse 82 08/11/17 08:44 Resp 19 08/11/17 08:44 BP 120/74 08/11/17 08:44 Pulse Ox 94 L 08/11/17 08:44 Intake & Output 08/10/17 08/11/17 08/11/17 18:59 06:59 18:59 Intake Total 800 Output Total 905 2900 Balance -105 -2900 Intake: IV 800 Output: Urine 900 2900 Estimated Blood Loss 5 Other: # Voids 1 1 - Labs CBC & Chem 7: 08/10/17 06:23 08/11/17 06:53 Labs: Abnormal Lab Results - Last 24 Hours (Table) 08/11/17 Range/Units 06:53 BUN 4 L (7-17) mg/dL Total Bilirubin 1.6 H (0.2-1.3) mg/dL AST 124 H (14-36) U/L ALT 305 H (9-52) U/L Assessment and Plan (1) Bilateral upper abdominal discomfort Status: Acute (2) Hyperbilirubinemia Status: Acute (3) Elevated alanine aminotransferase (ALT) level Status: Acute (4) Elevated SGOT (AST) Status: Acute (5) Hypertension Status: Acute (6) 3 weeks gestation of Status: Acute (7) Cholelithiasis Status: Acute (8) Status: Acute
--- NOTE | 2017-08-11 11:39 | P.DS ---
<Gabriela Rahman - Last Filed: 08/11/17 11:32> Providers Date of admission: 08/08/17 17:23 Expected date of discharge: 08/11/17 Attending physician: Katherine Gomez Consults: 08/08/17 17:20 Consult Physician Routine Consulting Provider: Darrell Stapleton Reason/Comments: Do you want consulting provider notified?: Yes Primary care physician: [facility] Course: 26-year-old female presented with bilateral upper abdominal pain described as a bandlike. Patient stated the symptoms started 3 weeks prior did present to emergency room at that time.PER serum beta hCG She stated at that time she was told she was 3 weeks . When seen in the emergency room patient was noted to have an elevated total bilirubin included elevated liver enzymes. Ultrasound the gallbladder was consistent with multiple gallstones. Was admitted to the services of the attending with an SUPERVISOR MARBLE consultation requested did follow patient throughout the hospitalizationWho indicated necessary for patient's health and safety surgery could certainly be entertained and carried out. Additionally consider neurology consultation was requested patient was seen by Dr. Spears who indicated at this time no need for an ERCP patient continued to have persistent symptoms of bilateral abdominal pain did elect to undergo scopic cholecystectomy on the 10 of August postop no events. Postprocedure the liver enzymes started to trend down patient was tolerating a diet was anxious to be discharged home. SUPERVISOR MARBLE recommended the need to follow-up in the outpatient setting for serial beta hcg due to confirm normal or follow the hormone level to 0. The findings of her home hormone levels remaining stable or decreasing over the last 4 days SUPERVISOR MARBLE felt was consistent with the diagnosis of a missed Impression (1) Bilateral upper abdominal discomfort suspect to acute cholelithiasis Status: Acute (2) Hyperbilirubinemia Status: Acute (3) Elevated alanine aminotransferase (ALT) level Status: Acute (4) Elevated SGOT (AST) Status: Acute (5) Hypertension Status: Acute (6) 3 weeks gestation of with hormone levels stable or decreasing over the last 4 days consistent with diagnosis of missed Status: Acute (7) Cholelithiasis Status: Acute Choledocholithiasis. 2. Hyperbilirubinemia secondary to common bile duct obstruction. 3. Elevated ALT 4. Elevated AST 5. , 3 weeks per serum. 6. Morbid obesity due to excess calories. 7. BMI 39.5 8. Hypertension. 9. Acute on chronic cholecystitis secondary to cystic duct obstruction. The above impression and plan of care have been discussed and directed by signing physician. Gabriela Rahman nurse practitioner acting as scribe for signing physician. Patient Condition at Discharge: Stable Plan - Discharge Summary New Discharge Prescriptions: New Acetaminophen Tab [Tylenol] 650 mg PO Q6HR PRN tab PRN Reason: Mild Pain Or Fever > 100.5 Continue Metoprolol/Hydrochlorothiazide [Lopressor Hct 50-25 mg Tab] 1 tab PO DAILY Multivitamins, Thera [Multivitamin (formulary)] 1 tab PO DAILY Discharge Medication List Metoprolol/Hydrochlorothiazide [Lopressor Hct 50-25 mg Tab] 1 tab PO DAILY 07/29 [History] Multivitamins, Thera [Multivitamin (formulary)] 1 tab PO DAILY 08/08/17 [History ] Acetaminophen Tab [Tylenol] 650 mg PO Q6HR PRN tab 08/11/17 [Rx] Follow up Appointment(s)/Referral(s): Dandy Cuellar MD [Primary Care Provider] - 1-2 days Darerll Stapleton MD [STAFF PHYSICIAN] - 1 Week Katherine Gomez MD [STAFF PHYSICIAN] - 08/16/17 1:20 pm Ambulatory/Diagnostic Orders: Comprehensive Metabolic Panel [LAB.AMB] Time Frame: 08/15/17, Location: Determined By Patient Activity/Diet/Wound Care/Special Instructions: Continue low fat diet as tolerated. Fluids encouraged. No lifting/pushing/ pulling over 10 pounds. May shower daily No tub baths swimming pools or hot tubs until cleared by physician.Have lab work drawn 08/15/2017. follow up appt to be scheduled through Dr. Jha office (message left). Call with any questions comments concerns or worsening symptoms, (fever 101.1 or higher, not tolerating diet, not tolerating pain, excessive drainage from sites, excessive vaginal bleeding) Discharge Disposition: HOME SELF-CARE <Katherine Gomez - Last Filed: 08/11/17 18:35> - Discharge Diagnosis(es) (1) Bilateral upper abdominal discomfort Status: Acute (2) Hyperbilirubinemia Status: Acute (3) Elevated alanine aminotransferase (ALT) level Status: Acute (4) Elevated SGOT (AST) Status: Acute (5) Hypertension Status: Acute (6) 3 weeks gestation of Status: Acute (7) Cholelithiasis Status: Acute (8) Status: Acute
[2017-08-11] MEDS: MULTIVITAMINS, THERA 1 EACH TAB PO SCH (13:18)
== END 2017-08-11 13:19 | disposition home or self-care (01) | DRG 781 ==
LOC: EC 12:39 → 6PED 17:23
PROVIDERS: ADMIT Surgery Plastic and Reconstructive Surgery; ATTEND Surgery Plastic and Reconstructive Surgery
PROC: 0FT44ZZ Resection of Gallbladder, Percutaneous Endoscopic Approach (ICD-10-PCS; principal; 2017-08-10 09:45)
DX: O26.611 Liver and biliary tract disorders in pregnancy, first trimester (principal); K80.67 Calculus of gallbladder and bile duct with acute and chronic cholecystitis with obstruction; E66.01 Morbid (severe) obesity due to excess calories; O16.1 Unspecified maternal hypertension, first trimester; O99.211 Obesity complicating pregnancy, first trimester; D18.00 Hemangioma unspecified site; O02.1 Missed abortion; Z3A.01 Less than 8 weeks gestation of pregnancy; Z68.39 Body mass index [BMI] 39.0-39.9, adult; Z83.3 Family history of diabetes mellitus; Z79.899 Other long term (current) drug therapy
CPT/HCPCS: 36415; 76705; 76801; 76817; 80053; 81001; 81025; 82150; 82248; 83690; 84702; 85025; 86900; 86901; 87086; 88304; 96360; 96361; 99285

== ENCOUNTER → 2017-08-15 | Outpatient (CLI) | payer MEDICAID, OTHER ==
[2017-08-15 13:29] LABS: ALT 157 U/L (9-52); AST 40 U/L (14-36); Alkaline Phosphatase 63 U/L (38-126); Anion Gap 9 mmol/L; Blood Urea Nitrogen 10 mg/dL (7-17); Calcium 9.9 mg/dL (8.4-10.2); Carbon Dioxide 29 mmol/L (22-30); Chloride 103 mmol/L (98-107); Glucose 102 mg/dL (74-99); Non-African American GFR(MDRD) >60 (>60 ml/min/1.73 sqM); Potassium 4.5 mmol/L (3.5-5.1); Sodium 141 mmol/L (137-145); Total Bilirubin 0.8 mg/dL (0.2-1.3); Total Protein 7.6 g/dL (6.3-8.2)
== END | disposition home or self-care (01) ==
LOC: LABWHC1 12:19
DX: O26.611 Liver and biliary tract disorders in pregnancy, first trimester (principal); Z3A.00 Weeks of gestation of pregnancy not specified
CPT/HCPCS: 36415; 80053; 84702

== ENCOUNTER → 2017-08-30 | Outpatient (CLI) | payer MEDICAID, OTHER | END | disposition home or self-care (01) | LOC: LABWHC1 16:30 | PROVIDERS: ATTEND Obstetrics & Gynecology | DX: O02.1 Missed abortion (principal); Z3A.00 Weeks of gestation of pregnancy not specified | CPT/HCPCS: 36415; 84702 ==

== ENCOUNTER 2018-09-04 01:43 | Outpatient (CLI) | payer MEDICAID, OTHER ==
[2018-09-04 03:23] VITALS: BP 137/93; PULSE 88; RESP 16; TEMP 97.7
--- NOTE | 2018-09-29 01:45 | P.MSEPDOC ---
Presenting Problems - Arrival Data Date of Arrival on Unit: 09/04/18 Time of Arrival on Unit: 01:43 Mode of Transport: Ambulatory - Complaint OB-Reason for Admission/Chief Complaint: Possible Onset of Labor Medical History - Information : 4 Para: 3 Term: 2 : 0 Abortions: Spontaneous or Elective: 1 Number of Living Children: 2 Review of Systems - Review of Systems Constitutional: No problems Breast: No problems ENT: No problems Cardiovascular: No problems Respiratory: No problems Gastrointestinal: No problems Genitourinary: No problems Musculoskeletal: No problems Neurological: No problems Skin: No problems Vital Signs - Temperature Temperature: 97.7 F Temperature Source: Oral - Pulse Right Brachial Pulse Rate: 88 Pulse Assessment Method: Automatic Cuff - Respirations Respiratory Rate: 16 Oxygen Delivery Method: Room Air O2 Sat by Pulse Oximetry: 97 - Blood Pressure Right Arm Blood Pressure: 137/93 Blood Pressure Mean: 107 Blood Pressure Source: Automatic Cuff Medical Screen Scoring (Pre) - Cervical Exam Dilation: 1-3 cm = 1 Membranes: Intact - Uterine Contractions Frequency: > 5 minutes apart = 1 Duration: N/A Intensity: N/A - Maternal Vital Signs Maternal Temperature: N/A Maternal Blood Pressure: N/A Signs of Preeclampsia: N/A Maternal Respirations: N/A - Pain Assessment Pain Location and Character: Abdomen Pain Scale Used: Numeric (1 - 10) Pain Intensity: 4 Pain Description: Cramping Pain Frequency: Intermittent Pain Duration Units: Minutes Pain Behavior: None Exhibited Pain Aggravating Factors: Contractions - Maternal Trauma Maternal Trauma: N/A - Assessment Baseline FHR: 130 Heart Rate - NICHD Category: Category I (Normal) = 0 Position: N/A - Total Score Total Score (Pre): 2 - Level of Risk Level of Risk: Low (0-5) Physician Notification (Pre) - Physician Notified Physician Notified Date: 09/04/18 Physician Notified Time: 03:07 Physician/Practitioner Notifed:: Dr. Fournier Spoke With: Dr. Fournier New Order Received: Yes - Notification Comment Comment: Dr. Fournier called and given report on pt in tr. Pt. c/o. Reactive nst. Vag. exam of 2/60/-2 with no change after one hour. No contractions traced. B/ps of 137/93. Orders recieved that if additional bp is 140s/90s pt to go home. If less then pt may. return to work. Disposition - Disposition OB Disposition: Discharge to home Discharge Date: 09/04/18 Discharge Time: 03:10 I agree with the RN Medical Screening Exam: Yes Risk & Benefit of care provided described in d/c instruction: Yes Diagnosis: FALSE LABOR AT OR AFTER 37 COMPLETED WEEKS OF GESTATION
== END 2018-09-04 03:10 | disposition home or self-care (01) ==
LOC: FBPOP 01:43
PROVIDERS: ATTEND Obstetrics & Gynecology
DX: O47.1 False labor at or after 37 completed weeks of gestation (principal); Z3A.00 Weeks of gestation of pregnancy not specified
CPT/HCPCS: 59025; 99213

== ENCOUNTER 2018-09-08 17:14 | Outpatient (CLI) | payer MEDICAID, OTHER ==
[2018-09-08 18:45] VITALS: BP 135/85; PULSE 101; RESP 18; TEMP 97
--- NOTE | 2018-09-10 12:00 | P.MSEPDOC ---
Presenting Problems - Arrival Data Date of Arrival on Unit: 09/08/18 Time of Arrival on Unit: 17:14 Mode of Transport: Ambulatory - Complaint OB-Reason for Admission/Chief Complaint: Rule Out SROM Comment: pt unsure of SROM Medical History - Information : 4 Para: 2 Term: 2 : 0 Abortions: Spontaneous or Elective: 2 Number of Living Children: 2 - Gestational Age Gestational Age by VISHNU (wks/days): 37 Weeks and 4 Days Review of Systems - Review of Systems Constitutional: No problems Breast: No problems ENT: No problems Cardiovascular: No problems Respiratory: No problems Gastrointestinal: No problems Genitourinary: No problems Musculoskeletal: No problems Neurological: No problems Skin: No problems Vital Signs - Temperature Temperature: 97.0 F Temperature Source: Axillary - Pulse Right Brachial Pulse Rate: 101 Pulse Assessment Method: Automatic Cuff - Respirations Respiratory Rate: 18 Oxygen Delivery Method: Room Air - Blood Pressure Right Arm Blood Pressure: 135/85 Blood Pressure Mean: 101 Blood Pressure Source: Automatic Cuff Medical Screen Scoring (Pre) - Cervical Exam Dilation: 1-3 cm = 1 Effacement: Exam Deferred Membranes: Intact - Uterine Contractions Frequency: > 5 minutes apart = 1 Duration: N/A Intensity: N/A - Maternal Vital Signs Maternal Temperature: N/A Maternal Blood Pressure: N/A Signs of Preeclampsia: N/A Maternal Respirations: N/A - Pain Assessment Pain Location and Character: Abdomen Pain Scale Used: Numeric (1 - 10) Pain Intensity: 3 Pain Description: *Acute, Aching, Tightness Pain Radiation Location: none Pain Frequency: Daily Pain Duration: 1 Pain Duration Units: Hours Pain Behavior: Vocalization - Maternal Trauma Maternal Trauma: N/A - Assessment Heart Rate - NICHD Category: Category I (Normal) = 0 NST: Reactive Position: N/A - Total Score Total Score (Pre): 2 - Level of Risk Level of Risk: Low (0-5) Physician Notification (Pre) - Physician Notified Physician Notified Date: 09/08/18 Physician Notified Time: 18:18 Physician/Practitioner Notifed:: Dr. Stapleton Spoke With: Dr. Stapleton New Order Received: Yes - Notification Comment Comment: discharge pt home Disposition - Disposition OB Disposition: Triage, Discharge to home, Written follow up instructions reviewed Discharge Date: 09/08/18 Discharge Time: 18:25 I agree with the RN Medical Screening Exam: Yes Risk & Benefit of care provided described in d/c instruction: Yes Diagnosis: FALSE LABOR AT OR AFTER 37 COMPLETED WEEKS OF GESTATION
== END 2018-09-08 18:25 | disposition home or self-care (01) ==
LOC: FBPOP 17:14
PROVIDERS: ATTEND Obstetrics & Gynecology
DX: O47.1 False labor at or after 37 completed weeks of gestation (principal); Z3A.37 37 weeks gestation of pregnancy
CPT/HCPCS: 59025; 84112; 99213

== ENCOUNTER 2018-09-18 05:52 | Inpatient (IN) | payer MEDICAID, OTHER ==
[2018-09-18] MEDS ORDERED: METHYLERGONOVINE 0.2 MG/ML 1 ML AMP IM PRN (06:07)
[2018-09-18] MEDS ORDERED: TERBUTALINE 1 MG/ML VIAL SQ PRN (06:07)
[2018-09-18] MEDS ORDERED: CARBOPROST TROMETHAMINE 250 MCG/ML 1 ML AMP IM PRN (06:07)
[2018-09-18] MEDS ORDERED: LIDOCAINE 0.5% (PF) 5 MG/ML (50 ML SDV) SQ PRN (06:07)
[2018-09-18] MEDS ORDERED: OXYTOCIN 10 UNIT/ML 1 ML VIAL IM PRN (06:07)
[2018-09-18 06:13] VITALS: BMI 43.6
[2018-09-18] MEDS ORDERED: OXYTOCIN 20 UNITS/1000 ML NS 1,000 ML IV SCH ×2 (06:15→16:15)
[2018-09-18] MEDS: LACTATED RINGERS 1,000 ML IV SCH ×3 (06:35→22:44)
[2018-09-18 06:48] LABS: Basophils % (A) 0 %; Eosinophils # (A) 0.1 k/uL (0-0.7); Eosinophils % (A) 1 %; HCT 36.9 % (34.0-46.0); HGB 12.4 gm/dL (11.4-16.0); Lymphocytes # (A) 1.3 k/uL (1.0-4.8); Lymphocytes % (A) 17 %; MCH 29.3 pg (25.0-35.0); MCHC 33.6 g/dL (31.0-37.0); MCV 87.2 fL (80.0-100.0); Mean Platelet Volume 9.4; Monocytes # (A) 0.3 k/uL (0-1.0); Monocytes % (A) 3 %; Neutrophils # (A) 5.9 k/uL (1.3-7.7); Neutrophils % (A) 78 %; Platelet Count 167 k/uL (150-450); RBC 4.23 m/uL (3.80-5.40); WBC 7.6 k/uL (3.8-10.6)
--- NOTE | 2018-09-18 08:16 | P.HPOB ---
History of Present Illness H&P Date: 09/18/18 Chief Complaint: IUP @ 39 0/7 weeks, LGA This is a 28-year-old 3 para 2001 at 39-0/7 weeks that presents for induction of labor. Patient is known LGA greater than 97th percentile on last ultrasound. Patient has been receiving routine care with Dr. Stapleton since the first trimester. Patient is dated by an early 9 week ultrasound consistent with her last menstrual period. On blood type the patient's blood type was known to be B+, rubella immune, RPR nonreactive, hepatitis B surface antigen negative, HIV negative she did fail her 1 hour GDS and passed her 3 hour GTT group beta strep was noted to be negative. Review of Systems Constitutional: Reports fatigue, Denies chills, Denies fever Ears, nose, mouth and throat: Denies headache Respiratory: Denies cough, Denies dyspnea Gastrointestinal: Reports constipation, Denies diarrhea, Denies nausea, Denies vomiting Genitourinary: Reports Past Medical History Past Medical History: Hypertension Additional Past Medical History / Comment(s): resolved with cholecystectomy History of Any Multi-Drug Resistant Organisms: None Reported Past Surgical History: Cholecystectomy Past Anesthesia/Blood Transfusion Reactions: No Reported Reaction Past Psychological History: No Psychological Hx Reported Smoking Status: Never smoker Past Alcohol Use History: None Reported Past Drug Use History: None Reported Additional Drug Use History / Comment(s): rare occasions patient has a wine cooler - Past Family History Mother Family Medical History: No Reported History Father Family Medical History: Diabetes Mellitus Medications and Allergies Home Medications Medication Instructions Recorded Confirmed Type 78/Iron/Folate 1/Dha 1 tab PO ONCE 09/04/18 09/18/18 History [Prenate Dha Softgel] Allergies Allergy/AdvReac Type Severity Reaction Status Date / Time No Known Allergies Allergy Verified 09/18/18 06:07 Exam Osteopathic Statement: *. No significant issues noted on an osteopathic structural exam other than those noted in the History and Physical/Consult. Vital Signs Temp Pulse Resp BP Pulse Ox 09/18/18 06:09 97.2 F L 97 18 146/88 97 Intake and Output 09/17/18 09/18/18 09/18/18 22:59 06:59 14:59 Other: Weight 115.212 kg - OBG Physical Exam Abdomen: Gravid and appropriate for gestational age Vulva: both: normal Cervix: 3-4/70/-2 amniotomy performed and clear fluid was obtained Anus/Rectum: normal perianal skin Results Result Diagrams: 09/18/18 06:34 Assessment and Plan (1) Term Current Visit: Yes Status: Acute Code(s): Z34.80 - ENCOUNTER FOR SUPRVSN OF NORMAL , UNSP TRIMESTER SNOMED Code(s): 88326909 (2) LGA (large for gestational age) fetus Current Visit: Yes Status: Acute Code(s): WBQ8498 - SNOMED Code(s): 296031624 Plan: Will admit for Pitocin induction of labor, anticipate spontaneous vaginal delivery later this afternoon.
[2018-09-18 10:01] LABS: ALT 44 U/L (9-52); AST 30 U/L (14-36); Blood Urea Nitrogen 9 mg/dL (7-17); LDH 408 U/L (313-618); Uric Acid 6.3 mg/dL (3.7-7.4)
[2018-09-18] MEDS ORDERED: ROPIVACAINE 100 MG, fentaNYL (PF) 200 MCG in SODIUM CHLORIDE 0.9% 76 ML EPIDURAL ONE (10:23)
[2018-09-18 11:44] LABS: Appearance,Urine Cloudy (Clear); Bacteria,Urine Rare /hpf; Bilirubin,Urine Negative (Negative); Blood,Urine Moderate (Negative); Color,Urine Yellow; Glucose,Urine (UA) Negative (Negative); Ketones,Urine Negative (Negative); Leukocyte Esterase,Urine Moderate (Negative); Mucus,Urine Rare /hpf; Nitrite,Urine Negative (Negative); Protein,Urine 1+ (Negative); RBC,Urine 109 /hpf (0-5); Specific Gravity,Urine 1.023 (1.001-1.035); Squamous Epithelial Cell,Urine 6 /hpf (0-4); Urobilinogen,Urine <2.0 mg/dL (<2.0); WBC,Urine 12 /hpf (0-5)
[2018-09-18] MEDS ORDERED: WITCH HAZEL 1 EACH MED..PAD TOPICAL PRN (16:15)
[2018-09-18] MEDS ORDERED: SIMETHICONE 80 MG CHEWABLE PO PRN (16:15)
[2018-09-18] MEDS ORDERED: ZOLPIDEM 5 MG TAB PO PRN (16:15)
[2018-09-18] MEDS ORDERED: HYDROCORTISONE 2.5% RECTAL CREAM 30 GM TUBE RECTAL PRN (16:15)
[2018-09-18] MEDS ORDERED: diphenhydrAMINE 50 MG/ML 1 ML VIAL IVP PRN ×2 (16:15)
[2018-09-18] MEDS ORDERED: ACETAMINOPHEN TAB 325 MG TAB PO PRN (16:15)
[2018-09-18] MEDS ORDERED: BENZOCAINE/MENTHOL SPRAY 1 GM/SPRAY AEROSOL TOPICAL PRN (16:15)
[2018-09-18] MEDS ORDERED: diphenhydrAMINE 25 MG CAP PO PRN (16:15)
[2018-09-18] MEDS ORDERED: LANOLIN CREAM 5 GM TUBE TOPICAL PRN (16:15)
[2018-09-18] MEDS ORDERED: diphenhydrAMINE 50 MG CAP PO PRN (16:15)
--- NOTE | 2018-09-18 16:18 | P.PROBDLV ---
Vaginal Delivery Note - . Vaginal Delivery Note: This is a very pleasant 28-year-old 3 para 2001 at 39-0/7 weeks with an estimated due date of 1029. Patient had been receiving routine care with Dr. Posey, patient was noted to have an LGA baby greater than the 97th percentile therefore elected induction at 39 weeks. For further details please see the completed history and physical. Patient was admitted to labor and delivery Pitocin induction of labor was begun. Once contractions were noted to be regular amniotomy was performed and clear fluid was obtained. Patient was uncomfortable soon afterwards received an epidural progressed through labor and had a normal spontaneous vaginal delivery of a viable male at 1605. Apgars of 9 and 9 at one and 5 minutes respectively. Weight is pending at this time secondary to maternal bonding. After a two-minute delayed the umbilical cord was doubly clamped and cut and the placenta was delivered spontaneously intact with a three-vessel cord being noted. On inspection the patient's vaginal vault the perineum was noted to be intact and there was a right labial laceration that was bleeding therefore a [id number] suture was used to obtain hemostasis. Estimated blood loss 200 mL, all counts were correct 2 after the delivery Patient and infant tolerated delivery well and are resting comfortably.
[2018-09-18 18:15] VITALS: RESP 16
[2018-09-18] MEDS: IBUPROFEN 600 MG TAB PO PRN (22:31)
[2018-09-18] MEDS: SENNOSIDES-DOCUSATE SODIUM 1 EACH TAB PO SCH (22:44)
[2018-09-19] MEDS: IBUPROFEN 600 MG TAB PO PRN ×2 (04:11→15:04)
[2018-09-19 08:18] LABS: Basophils % (A) 0 %; Eosinophils # (A) 0.1 k/uL (0-0.7); Eosinophils % (A) 1 %; HCT 36.9 % (34.0-46.0); HGB 12.2 gm/dL (11.4-16.0); Lymphocytes # (A) 1.4 k/uL (1.0-4.8); Lymphocytes % (A) 13 %; MCV 87.8 fL (80.0-100.0); Mean Platelet Volume 9.2; Monocytes # (A) 0.3 k/uL (0-1.0); Monocytes % (A) 3 %; Neutrophils # (A) 8.9 k/uL (1.3-7.7); Neutrophils % (A) 83 %; Platelet Count 152 k/uL (150-450); WBC 10.8 k/uL (3.8-10.6)
--- NOTE | 2018-09-19 08:43 | P.PNOBGVD ---
Subjective - Subjective Principal diagnosis: PPD 1 Interval history: Patient is doing well she is ambulating and voiding without difficulty. She is tolerating a regular diet without nausea or vomiting, she states her pain is controlled. She denies concerns currently. Patient reports: Reports appetite normal, Reports voiding normally, Reports pain well controlled, Reports ambulating normally : doing well Objective - Latest Vital Signs Latest vital signs: Vital Signs Temp Pulse Resp BP BP Pulse Ox 09/19/18 07:52 97.8 F 80 16 139/89 09/19/18 04:00 97.7 F 75 16 146/70 09/19/18 00:00 98.3 F 95 16 145/86 09/18/18 20:00 99.2 F 98 16 152/88 97 09/18/18 18:19 98.3 F 102 H 16 138/81 09/18/18 17:49 101 H 16 148/88 09/18/18 17:19 100 17 154/72 09/18/18 17:03 96 16 132/59 09/18/18 16:49 95 17 146/68 09/18/18 16:34 96 17 140/76 09/18/18 16:22 98.4 F 97 16 137/87 Intake and Output 09/18/18 09/19/18 09/19/18 22:59 06:59 14:59 Output Total 200 Balance -200 Output: Estimated Blood Loss 200 Other: # Voids 2 2 - Exam Extremities: Present: normal, edema Abdomen: Present: normal appearance, soft Uterus: Present: firm - Labs Labs: Abnormal Lab Results - Last 24 Hours (Table) 09/18/18 09/19/18 Range/Units 09:30 07:38 WBC 10.8 H (3.8-10.6) k/uL Neutrophils # 8.9 H (1.3-7.7) k/uL Urine Appearance Cloudy H (Clear) Urine Protein 1+ H (Negative) Urine Blood Moderate H (Negative) Ur Leukocyte Esterase Moderate H (Negative) Urine RBC 109 H (0-5) /hpf Urine WBC 12 H (0-5) /hpf Ur Squamous Epith Cells 6 H (0-4) /hpf Urine Bacteria Rare H (None) /hpf Urine Mucus Rare H (None) /hpf Assessment and Plan (1) Term Current Visit: Yes Status: Acute Code(s): Z34.80 - ENCOUNTER FOR SUPRVSN OF NORMAL , UNSP TRIMESTER SNOMED Code(s): 82071898 (2) LGA (large for gestational age) fetus Current Visit: Yes Status: Acute Code(s): SRI7271 - SNOMED Code(s): 519702724 (3) Status post vaginal delivery Current Visit: Yes Status: Acute Code(s): FYH4063 - SNOMED Code(s): 609517081 Plan: Patient is doing well . We will continue routine care.
[2018-09-19] MEDS: SENNOSIDES-DOCUSATE SODIUM 1 EACH TAB PO SCH ×2 (13:18→22:22)
[2018-09-20] MEDS: IBUPROFEN 600 MG TAB PO PRN ×3 (01:04→15:35)
--- NOTE | 2018-09-20 08:12 | P.DS ---
Providers Date of admission: 09/18/18 05:52 Expected date of discharge: 09/20/18 Attending physician: Luzmaria Beckman Primary care physician: Stated None - Discharge Diagnosis(es) (1) Term Current Visit: Yes Status: Acute (2) LGA (large for gestational age) fetus Current Visit: Yes Status: Acute (3) Status post vaginal delivery Current Visit: Yes Status: Acute Hospital Course: This is a 28-year-old 3 para 2001 at 39-0/7 weeks that presented to labor and delivery on 1021. Patient was scheduled for elective induction of labor secondary to LGA. Patient was admitted Pitocin induction was begun amniotomy was performed and clear fluid was obtained. Patient progressed through labor eventually getting an epidural progressed to complete began pushing and had a normal spontaneous vaginal delivery of a viable male infant at 1605, weight of 8 lbs. 15 oz., Apgars of 9 and 9 at one and 5 minutes respectively. Patient's course has been uneventful. She is bottle feeding. She is a bleeding and voiding without difficulty. She is tolerating a regular diet without nausea or vomiting. She is without complaints today. Infant is on a bili blanket secondary to hyperbilirubinemia. Patient Condition at Discharge: Good Plan - Discharge Summary New Discharge Prescriptions: No Action 78/Iron/Folate 1/Dha [Prenate Dha Softgel] 1 tab PO ONCE Discharge Medication List 78/Iron/Folate 1/Dha [Prenate Dha Softgel] 1 tab PO ONCE 09/04/18 [ History] Follow up Appointment(s)/Referral(s): Darrell Stapleton MD [STAFF PHYSICIAN] - 6 Weeks Patient Instructions/Handouts: Vaginal Delivery (DC), Vaginal Delivery (GEN) Discharge Disposition: HOME SELF-CARE
[2018-09-20] MEDS: SENNOSIDES-DOCUSATE SODIUM 1 EACH TAB PO SCH (08:30)
[2018-09-20 10:02] VITALS: BP 148/89; PULSE 90; TEMP 98.2
== END 2018-09-20 15:40 | disposition home or self-care (01) | DRG 807 ==
LOC: 4FBP 05:52
PROVIDERS: ADMIT Obstetrics & Gynecology Obstetrics; ATTEND Obstetrics & Gynecology Obstetrics
PROC: 00HU33Z Insertion of Infusion Device into Spinal Canal, Percutaneous Approach (ICD-10-PCS; principal; 2018-09-18)
PROC: 10E0XZZ Delivery of Products of Conception, External Approach (ICD-10-PCS; principal; 2018-09-18)
PROC: 3E0R3BZ Introduction of Anesthetic Agent into Spinal Canal, Percutaneous Approach (ICD-10-PCS; 2018-09-18)
PROC: 3E033VJ Introduction of Other Hormone into Peripheral Vein, Percutaneous Approach (ICD-10-PCS; 2018-09-18)
PROC: 10907ZC Drainage of Amniotic Fluid, Therapeutic from Products of Conception, Via Natural or Artificial Opening (ICD-10-PCS; 2018-09-18)
DX: O36.63X0 Maternal care for excessive fetal growth, third trimester, not applicable or unspecified (principal); Z37.0 Single live birth; O16.4 Unspecified maternal hypertension, complicating childbirth; O70.0 First degree perineal laceration during delivery; Z3A.39 39 weeks gestation of pregnancy; Z83.3 Family history of diabetes mellitus; Z90.49 Acquired absence of other specified parts of digestive tract
CPT/HCPCS: 81001; 82565; 83615; 84450; 84460; 84520; 84550; 85025; 86850; 86900; 86901

== ENCOUNTER → 2021-08-19 | Outpatient (CLI) | payer OTHER ==
--- NOTE | 2021-08-19 13:31 | MR ---
MRI left foot HISTORY: Fracture of ligament, trauma, pain left midfoot Multiplanar multisequence imaging obtained through the left foot There is subcutaneous edema change present over the lateral aspect of the left foot. Extensor tendon is intact at this level, there is no ligamentous disruption of the flexor extensor tendons, Proteus l ongus and brevis tendons. Some subcutaneous edema is present at the level the medial malleolus. The Lisfranc ligament is intact, there is normal alignment. Bone marrow signal is normal. No evident fracture or dislocation. At the lower aspect of the midfoot there is some local edema present suggest ing possible sprain of the Lisfranc complex. IMPRESSION: There is no jonathan disruption evident of the Lisfranc ligament. Probable mid foot ligament ous sprain, there are areas of soft tissue edema as described
== END | disposition home or self-care (01) ==
LOC: RADMRIMAIN 08:52
PROVIDERS: ATTEND Podiatrist Foot & Ankle Surgery
DX: S99.922A Unspecified injury of left foot, initial encounter (principal)

== ENCOUNTER → 2021-09-03 | Outpatient (CLI) | payer OTHER | END | disposition home or self-care (01) | LOC: LABWHC1 12:05 | PROVIDERS: ATTEND Obstetrics & Gynecology | DX: R73.09 Other abnormal glucose (principal) | CPT/HCPCS: 36415; 83036 ==